=== PATIENT | male | born 1935 | race Two or more races ===

== ENCOUNTER 2016-12-30 19:41 | Emergency (ER) | payer MEDICARE, OTHER ==
[~2016-12-30] VITALS: Ht 172.7 cm; Wt 68.0 kg
[~2016-12-30 19:41] MED LIST: ACET-868 PO; AMIN30LI2 PO; BISA10SU61 RC; DOCU-25 PO; DONE5TAB3 PO; MAGN400O6 PO; MEMA5TAB PO; NA P133E RC; TAMS-12 PO; TRAM50TA2 PO
--- NOTE | 2016-12-30 19:45 | NUR ---
TO BED 3 BIB PARAMEDICS C/O ALTERED MENTAL STATUS. UPON ASSESSMENT OF PT, PT WAS CRYING, APPEARS DEPRESSED. PT STATES "I DON'T CARE, I JUST WANT TO , I DON'T HAVE A HOUSE, I DON'T HAVE ANYTHING, THERE'S NO POINT IN LIVING". PLACE PT ON CARDIAC MONITORING, CONTINUOUS POX. SL 18G TO L AC PT. CALL LIGHT WITHIN REACH. WILL CONTINUE TO MONITOR PT CLOSELY.
[2016-12-30] MEDS ORDERED: IV NS 0.9% 1,000 ML IV ONE ×2 (20:15→21:15)
[2016-12-30] MEDS ORDERED: ALBUTEROL FS 2.5 MG/3 ML VIAL.NEB ONE (20:24)
[2016-12-30] MEDS ORDERED: IPRATROPIUM NEB FS 0.5 MG/2.5 ML AMPUL.NEB ONE (20:24)
[2016-12-30] MEDS ORDERED: IPRATROPIUM NEB FS 0.5 MG/2.5 ML AMPUL.NEB NEB ONE (20:30)
[2016-12-30] MEDS ORDERED: ALBUTEROL FS 2.5 MG/3 ML VIAL.NEB NEB ONE (20:30)
[2016-12-30] MEDS ORDERED: ONDANSETRON HCL/PF 4 MG/2 ML VIAL IVP ONE (20:30)
[2016-12-30 20:37] LABS: BASOPHILS % (AUTO) 0.5 % (0.0-2.0); EOSINOPHILS # (AUTO) 0.2 /CMM (0.0-0.7); EOSINOPHILS % (AUTO) 2.1 % (0.0-6.0); HEMATOCRIT 40 % (39-51); HEMOGLOBIN 13.7 g/dL (13.5-17.5); LYMPHOCYTES # (AUTO) 1.4 /CMM (0.8-4.8); LYMPHOCYTES % (AUTO) 17.3 % (20.0-44.0); MEAN CORPUSCULAR HEMOGLOBIN 33 PG (26.0-33.0); MEAN CORPUSCULAR HGB CONC 34 g/dl (31.0-36.0); MEAN CORPUSCULAR VOLUME 96 fL (80-96); MONOCYTES # (AUTO) 0.7 /CMM (0.1-1.30); MONOCYTES % (AUTO) 8.6 % (2.0-12.0); NEUTROPHILS # (AUTO) 5.9 /CMM (1.8-8.9); NEUTROPHILS % (AUTO) 71.5 % (43.0-81.0); PLATELET COUNT (AUTO) 192 /CMM (150-450); RDW COEFFICIENT OF VARIATION 13.4 (11.5-15.0); RED BLOOD CELL COUNT(AUTO) 4.17 MIL/uL (4.5-6.0); WHITE BLOOD COUNT (AUTO) 8.2 K/uL (4.3-11.0)
[2016-12-30 20:51] LABS: CALCIUM, SERUM 8.9 mg/dL (8.5-10.1); CARBON DIOXIDE 30 mmol/L (21-32); CHLORIDE 108 mmol/L (98-107); CREATININE 1.5 mg/dL (0.6-1.3); GLUCOSE 113 mg/dL (74-106); SODIUM SERUM 144 mmol/L (136-145); UREA NITROGEN, BLOOD 24 mg/dL (7-18)
[2016-12-30] MEDS ORDERED: IV SET PRIMARY 1 EA INFUS.SET MC ONE (20:51)
[2016-12-30] MEDS ORDERED: ONDANSETRON HCL/PF 4 MG/2 ML VIAL ONE (20:51)
[2016-12-30] MEDS ORDERED: IV NS 0.9% 1,000 ML ONE (20:51)
[2016-12-30 20:57] LABS: LACTIC ACID 1.1 mmol/L (0.4-2.0)
[2016-12-30 20:58] LABS: TROPONIN I < 0.017 ng/mL (0.00-0.056)
[2016-12-30 21:03] LABS: ALANINE AMINOTRANSFERASE 50 U/L (12-78); ALBUMIN 3.4 g/dL (3.4-5.0); ALKALINE PHOSPHATASE 107 U/L (46-116); ASPARTATE AMINOTRANSFERASE 35 U/L (15-37); B-TYPE NATRIURETIC PEPTIDE 284 PG/ML (0-125); BILIRUBIN,DIRECT 0.1 mg/dL (0.0-0.2); BILIRUBIN,TOTAL 0.3 mg/dL (0.2-1.0); TOTAL PROTEIN, SERUM 7.2 g/dL (6.4-8.2)
--- NOTE | 2016-12-30 21:22 | NUR ---
CALLED [facility] FOR TRANSPORT BACK TO SNF, ETA 1 HOUR
[2016-12-30] MEDS ORDERED: FUROSEMIDE 40 MG/4 ML VIAL IV ONE (21:30)
--- NOTE | 2016-12-30 21:31 | NUR ---
REPORT CALLED TO [facility] NURSE LUKAS. AWAITING TRANSPORT.
[2016-12-30] MEDS ORDERED: FUROSEMIDE 40 MG/4 ML VIAL ONE (21:48)
--- NOTE | 2016-12-30 21:52 | NUR ---
TRANSPORT AT BEDSIDE REPORT GIVEN TO EMT TRANSPORT.
--- NOTE | 2016-12-30 21:52 | NUR ---
IV removed. Catheter intact and site benign. Pressure and 4x4 applied to site. No bleeding noted.
[2016-12-30 21:53] VITALS: BP 130/97
== END 2016-12-30 22:00 | disposition home or self-care (01) ==
LOC: ER 19:44
DX: J81.1 Chronic pulmonary edema (principal); R05 Cough; F32.9 Major depressive disorder, single episode, unspecified; I10 Essential (primary) hypertension; G30.9 Alzheimer's disease, unspecified; F02.80 Dementia in other diseases classified elsewhere, unspecified severity, without behavioral disturbance, psychotic disturbance, mood disturbance, and anxiety; K21.9 Gastro-esophageal reflux disease without esophagitis; E78.5 Hyperlipidemia, unspecified; N40.0 Benign prostatic hyperplasia without lower urinary tract symptoms
CPT/HCPCS: 36415; 71010-TC; 80048-TC; 80076-TC; 82962-TC; 83605-TC; 83880; 84484-TC; 85025-TC; 87040-TC; 87400; A4606; J1940; J2405; J7030; Z7610

== ENCOUNTER 2019-10-19 10:33 | Emergency (ER) | payer MEDICARE, OTHER ==
[~2019-10-19] VITALS: Ht 167.6 cm; Wt 66.7 kg
[~2019-10-19 10:33] MED LIST changes: +DOCU-141 PO; -DOCU-25 PO; -DONE5TAB3 PO; +DONE5TAB7 PO
--- NOTE | 2019-10-19 10:45 | NUR ---
BIBA Unit [facility] [place] [facility] "Abnormal labs K 5.8" Patient a/ox4, breathing even and unlabored, no sob noted, keep comfortable.
[2019-10-19 11:20] LABS: BASOPHILS # (AUTO) 0.1 /CMM (0.0-0.2); BASOPHILS % (AUTO) 0.8 % (0.0-2.0); EOSINOPHILS % (AUTO) 2.8 % (0.0-6.0); HEMATOCRIT 41 % (39-51); HEMOGLOBIN 13.5 g/dL (13.5-17.5); LYMPHOCYTES # (AUTO) 1.9 /CMM (0.8-4.8); MEAN CORPUSCULAR HGB CONC 33 g/dl (31.0-36.0); MEAN CORPUSCULAR VOLUME 100 fL (80-96); MONOCYTES # (AUTO) 0.6 /CMM (0.1-1.30); MONOCYTES % (AUTO) 8.9 % (2.0-12.0); NEUTROPHILS # (AUTO) 4.4 /CMM (1.8-8.9); NEUTROPHILS % (AUTO) 60.5 % (43.0-81.0); PLATELET COUNT (AUTO) 207 /CMM (150-450); RED BLOOD CELL COUNT(AUTO) 4.08 MIL/uL (4.5-6.0); WHITE BLOOD COUNT (AUTO) 7.2 K/uL (4.3-11.0)
[2019-10-19 11:27] LABS: CREATININE 1.3 mg/dL (0.6-1.3); POTASSIUM 3.8 mmol/L (3.5-5.1)
--- NOTE | 2019-10-19 12:30 | NUR ---
IV removed. Catheter intact and site benign. Pressure and 4x4 applied to site. No bleeding noted.
--- NOTE | 2019-10-19 12:56 | NUR ---
ARRANGED BLS TRANSPORT WITH [facility] ETA: 1315, SPOKE TO WILBERT.
--- NOTE | 2019-10-19 12:59 | NUR ---
Patient ambulatory with slow unsteady gait. Risk for fall. Fall precautions observed.
[2019-10-19] MEDS ORDERED: IV NS 0.9% 1,000 ML BAG IV ONE (13:00)
[2019-10-19] MEDS ORDERED: ONDANSETRON HCL/PF 4 MG/2 ML VIAL IV ONE (13:00)
--- NOTE | 2019-10-19 13:20 | NUR ---
report given to ALBINA RECINOS at [facility]
--- NOTE | 2019-10-19 13:25 | NUR ---
report given to utility bill complaints investigator. Patient a/ox1-2, confusion at times, breathing even and unlabored, no sob noted, needs attended and met. Patient discharged to SNF in stable condition. Written and verbal after care instructions given. Patient verbalizes understanding of instruction.
[2019-10-19 13:30] VITALS: BP 113/51
== END 2019-10-19 13:31 ==
LOC: ER 10:38
DX: I49.3 Ventricular premature depolarization (principal); E87.5 Hyperkalemia; G30.9 Alzheimer's disease, unspecified; F02.80 Dementia in other diseases classified elsewhere, unspecified severity, without behavioral disturbance, psychotic disturbance, mood disturbance, and anxiety; I10 Essential (primary) hypertension; K21.9 Gastro-esophageal reflux disease without esophagitis; M62.81 Muscle weakness (generalized); Z98.890 Other specified postprocedural states; Z79.899 Other long term (current) drug therapy
CPT/HCPCS: 36415; 80048-TC; 83735-TC; 85025-TC

== ENCOUNTER 2020-03-11 20:03 | Emergency (ER) | payer MEDICARE, OTHER ==
[~2020-03-11] VITALS: Ht 165.1 cm; Wt 77.1 kg
--- NOTE | 2020-03-11 20:17 | NUR ---
SANTIAGO AGUDELO FROM [facility] FOR C/O SCROTAL S[place]LL[place] REDNESS X 1 DAY; PT AWAKE, ALERT, -SOB, NAD NOTED, PENDING ER PROVIDER EVAL;
--- NOTE | 2020-03-11 20:55 | NUR ---
US TECH AT THE BED SIDE
[2020-03-11] MEDS ORDERED: LIDOCAINE 2% JEL UROJET 10 ML MM ONE (21:00)
[2020-03-11 21:10] LABS: APPEARANCE,URINE Clear (CLEAR); BILIRUBIN,URINE Negative (NEGATIVE); BLOOD, URINE Trace-lysed Ery/uL (NEGATIVE); COLOR,URINE Yellow (YELLOW); KETONES,URINE Negative (NEGATIVE); LEUKOCYTE ESTERASE ,URINE Negative (NEGATIVE); NITRITE, URINE Negative (NEGATIVE); PROTEIN,URINE 30 mg/dl (NEGATIVE); UGLUCOSE Negative (NEGATIVE)
[2020-03-11 21:38] LABS: BACTERIA,URINE None seen /HPF (None Seen); SQUAMOUS EPITHELIAL CELL,UR Few /HPF (None Seen); WBC,URINE 0-2 /HPF (0-3)
--- NOTE | 2020-03-11 22:14 | NUR ---
RES# [id number] ETA TO FOLLOW
--- NOTE | 2020-03-11 22:21 | NUR ---
[facility] ETA [id number]
[2020-03-11 22:30] VITALS: BP 132/75
--- NOTE | 2020-03-11 22:42 | NUR ---
REPORT GIVEN TO LUKAS NURSE AT [facility]
--- NOTE | 2020-03-11 23:00 | NUR ---
given report bls transport back to [facility]. assisted pt to transport jonathan. pt left in stable condition vss.
== END 2020-03-11 23:59 ==
LOC: ER 20:03
DX: N43.3 Hydrocele, unspecified (principal); N50.3 Cyst of epididymis; G30.9 Alzheimer's disease, unspecified; F02.80 Dementia in other diseases classified elsewhere, unspecified severity, without behavioral disturbance, psychotic disturbance, mood disturbance, and anxiety; I10 Essential (primary) hypertension; E78.5 Hyperlipidemia, unspecified; N40.0 Benign prostatic hyperplasia without lower urinary tract symptoms; Z98.890 Other specified postprocedural states; Z79.899 Other long term (current) drug therapy
CPT/HCPCS: 76870-TC; 81000-TC

== ENCOUNTER 2020-03-16 08:06 | Inpatient (IN) | payer MEDICARE, OTHER ==
[~2020-03-16] VITALS: Ht 157.5 cm; Wt 67.6 kg
--- NOTE | 2020-03-16 08:10 | NUR ---
BIBRA 878 FROM [facility] C/O TESTICULAR PAIN AND SWELLING, PT IS AAOX2, NOT IN RESPIRATORY DISTRESS, HOOKED TO VETERINARY TECHNOLOGIST, KEPT RESTED AND COMFORTABLE, WILL CONTINUE TO MONITOR.
--- NOTE | 2020-03-16 08:15 | NUR ---
IV LINE ESTABLISHED BLOOD DRAWN AND SENT TO LAB.
[2020-03-16 08:32] LABS: BASOPHILS % (AUTO) 0.7 % (0.0-2.0); EOSINOPHILS % (AUTO) 2.7 % (0.0-6.0); HEMATOCRIT 42 % (39-51); LYMPHOCYTES # (AUTO) 1.6 /CMM (0.8-4.8); LYMPHOCYTES % (AUTO) 27.5 % (20.0-44.0); MEAN CORPUSCULAR HGB CONC 33 g/dl (31.0-36.0); MEAN CORPUSCULAR VOLUME 101 fL (80-96); MONOCYTES # (AUTO) 0.5 /CMM (0.1-1.30); MONOCYTES % (AUTO) 7.6 % (2.0-12.0); NEUTROPHILS # (AUTO) 3.7 /CMM (1.8-8.9); NEUTROPHILS % (AUTO) 61.5 % (43.0-81.0); PLATELET COUNT (AUTO) 198 /CMM (150-450); RED BLOOD CELL COUNT(AUTO) 4.19 MIL/uL (4.5-6.0)
--- NOTE | 2020-03-16 08:38 | NUR ---
URINE SPECIMEN COLLECTED AND SENT TO LAB.
[2020-03-16 08:40] LABS: CALCIUM, SERUM 8.7 mg/dL (8.5-10.1); CREATININE 1.1 mg/dL (0.6-1.3); POTASSIUM 3.8 mmol/L (3.5-5.1)
[2020-03-16 08:45] LABS: APPEARANCE,URINE Clear (CLEAR); BILIRUBIN,URINE Negative (NEGATIVE); BLOOD, URINE Small Ery/uL (NEGATIVE); COLOR,URINE Yellow (YELLOW); KETONES,URINE Negative (NEGATIVE); LEUKOCYTE ESTERASE ,URINE Negative (NEGATIVE); NITRITE, URINE Negative (NEGATIVE); PROTEIN,URINE 100 mg/dl (NEGATIVE); UGLUCOSE Negative (NEGATIVE); UROBILINOGEN,URINE 0.2 EU/dL (0.2)
[2020-03-16 08:56] LABS: ALBUMIN 3.5 g/dL (3.4-5.0); BILIRUBIN,DIRECT 0.1 mg/dL (0.0-0.2); BILIRUBIN,TOTAL 0.5 mg/dL (0.2-1.0); TOTAL PROTEIN, SERUM 7.4 g/dL (6.4-8.2)
[2020-03-16 09:01] LABS: BACTERIA,URINE Few /HPF (None Seen); SQUAMOUS EPITHELIAL CELL,UR Few /HPF (None Seen); WBC,URINE 0-2 /HPF (0-3)
--- NOTE | 2020-03-16 09:09 | NUR ---
PT IS BACK FROM THE CT SCAN.
--- NOTE | 2020-03-16 10:39 | NUR ---
ROOM GIVEN 326-1 MS
[2020-03-16] MEDS ORDERED: OMEG1CAP PO (10:41)
[2020-03-16] MEDS ORDERED: ACET-2605 PO (10:41)
[2020-03-16] MEDS ORDERED: QUET25TA PO ×2 (10:41)
[2020-03-16] MEDS ORDERED: FURO-145 PO (10:41)
[2020-03-16] MEDS ORDERED: ZOLP5TAB2 PO (10:41)
[2020-03-16] MEDS ORDERED: GINK120C PO (10:41)
[2020-03-16] MEDS ORDERED: LORA-258 PO (10:41)
[2020-03-16] MEDS ORDERED: ACET-868 PO (10:41)
[2020-03-16] MEDS ORDERED: CRAN425C6 PO (10:41)
[2020-03-16] MEDS ORDERED: ONDANSETRON HCL/PF 4 MG/2 ML VIAL IVP PRN (11:00)
[2020-03-16] MEDS ORDERED: HYDROCODONE/APAP 5/325MG 1 EACH TABLET PO PRN (11:00)
[2020-03-16] MEDS ORDERED: Z GUARD REMEDY 2 OZ OINT TP PRN (11:00)
[2020-03-16] MEDS ORDERED: ZOLPIDEM TARTRATE 5 MG TABLET PO PRN (11:00)
[2020-03-16] MEDS ORDERED: MAGNESIUM HYDROXIDE 30 ML UDC PO PRN (11:00)
[2020-03-16] MEDS ORDERED: MAG HYDROX/AL HYDROX/SIMETH 30 ML UDC PO PRN (11:00)
[2020-03-16] MEDS ORDERED: ACETAMINOPHEN 325 MG TABLET PO PRN (11:00)
[2020-03-16] MEDS ORDERED: MORPHINE SULFATE INJ 2 MG/ML DISP.SYRIN IV PRN (11:00)
--- NOTE | 2020-03-16 11:10 | NUR ---
REPORT GIVEN TO GRISEL MARTINEZ FOR AGUSTÍN.
[2020-03-16 11:45] VITALS: BP 145/75
--- NOTE | 2020-03-16 11:45 | NUR ---
RN OPENING NOTE Received patient awake in bed transferred to room 326-1 no signs of distress. On RA tolerating well. AO x3. He said he doesnt know why he is here. Informed he is being monitored for his testicular pain and diff urinating. Vital signs as follows BP 141/62 HR 71 RR 18 temp 96.8 o2 sat 97%. Urinal provided. on a diaper. Able to ambulate with assist.[place] Citizen speaking MUSIC PROFESSIONALS at bedside. No skin issues. Has LAC #18 flushed well. Safety measures reinforced. Call light within reach. Side rails up x2. bed lcoked and on lowest position. Will cont to monitor.
--- NOTE | 2020-03-16 14:00 | NUR ---
FOLLOWED UP WITH DR HERNANDEZ FOR MED RECON.
[2020-03-16 16:00] VITALS: BP 134/83
--- NOTE | 2020-03-16 19:10 | NUR ---
RN CLOSING NOTE Patient in bed calm and relaxed no signs of distress. Vital signs maintained within normal limits. Kept patient clean and dry. Safety measures reinforced. Bed locked and on lowest position. Side rails up x2. Will endorse to carpet binder nurse for kyle.
[2020-03-16 20:00] VITALS: BP 132/80
--- NOTE | 2020-03-16 20:00 | NUR ---
RN NOTES RECEIVED PATIENT SITTING ON THE EDGE OF BED, ALERT AND ORIENTED X2, WITH CONFUSION, STABLE ON ROOM AIR, UNSTEADY GAIT, LOOKING FOR SHOES, TOLD PATIENT HAS NO BELONGINGS ON ADMISSION CONFIRMED BY INVENTORY FORM. WILL CONTINUE TO MONITOR.
[2020-03-16 20:02] VITALS: BP 132/80
[2020-03-17] MEDS: ENOXAPARIN SODIUM 40 MG/0.4 ML DISP.SYRIN SQ SCH (03:28)
[2020-03-17 06:48] LABS: BASOPHILS # (AUTO) 0.1 /CMM (0.0-0.2); BASOPHILS % (AUTO) 0.9 % (0.0-2.0); EOSINOPHILS % (AUTO) 2.3 % (0.0-6.0); HEMATOCRIT 42 % (39-51); HEMOGLOBIN 13.5 g/dL (13.5-17.5); LYMPHOCYTES # (AUTO) 1.6 /CMM (0.8-4.8); LYMPHOCYTES % (AUTO) 26.2 % (20.0-44.0); MEAN CORPUSCULAR HGB CONC 32 g/dl (31.0-36.0); MEAN CORPUSCULAR VOLUME 103 fL (80-96); MONOCYTES # (AUTO) 0.7 /CMM (0.1-1.30); MONOCYTES % (AUTO) 10.8 % (2.0-12.0); NEUTROPHILS # (AUTO) 3.8 /CMM (1.8-8.9); NEUTROPHILS % (AUTO) 59.8 % (43.0-81.0); PLATELET COUNT (AUTO) 196 /CMM (150-450); RED BLOOD CELL COUNT(AUTO) 4.06 MIL/uL (4.5-6.0); WHITE BLOOD COUNT (AUTO) 6.3 K/uL (4.3-11.0)
--- NOTE | 2020-03-17 06:52 | NUR ---
RN NOTES PATIENT ALERT AND ORIENTED X2, ROOM AIR, NO COMPLAIN OF PAIN, FORGETFUL, REDIRECTABLE, UNSTEADY GAIT, AMBULATES WITH CONTACT GUARD ASSIST, URINARY FREQUENCY, VOIDED X5 IN TOILET. PER CT ENLARGED PROSTATE WITH NON OBSTRUCTING CALCULI.
[2020-03-17 06:56] LABS: THYROID STIMULATING HORMONE 2.544 uIU/mL (0.358-3.74)
[2020-03-17 06:57] LABS: CALCIUM, SERUM 8.8 mg/dL (8.5-10.1); CREATININE 0.8 mg/dL (0.6-1.3); MAGNESIUM 2.2 mg/dL (1.8-2.4); PHOSPHORUS 2.7 mg/dL (2.5-4.9); POTASSIUM 3.9 mmol/L (3.5-5.1)
[2020-03-17 07:12] LABS: FREE PSA 2.61 ng/mL (0.00-45); PROSTATE SPECIFIC ANTIGEN SCR 14.73 ng/mL (0.00-4.00)
--- NOTE | 2020-03-17 07:30 | NUR ---
MS/RN Opening note Received patient alert, oriented x 2, forgetful, able to responds all stimuli. Pt denies abdominal pain or discomfort. Skin is warm to touch, keep clean/dry, no abdominal distension observed this morning. Respiratory even and unlabored in room air, no distress observed. Keep bed in lock with elevated HOB for secure airway. Call light within reach, will continue to monitor
[2020-03-17 08:00] VITALS: BP 144/66
[2020-03-17] MEDS ORDERED: IV NS 0.9% 1,000 ML IV PRN (09:16)
[2020-03-17 16:00] VITALS: BP 139/85
[2020-03-17] MEDS: DOCUSATE SODIUM 100 MG CAPSULE PO SCH (17:11)
--- NOTE | 2020-03-17 18:33 | NUR ---
MS//RN Closing note Patient in bed comfortably, does no appears pain or any discomfort. Patient pulled out new IV site. Skin is warm to touch and clean/dry, patient denies abdominal pain or distension. Respiratory even and unlabored in room air. Keep bed in locked with elevated HOB for secure airway. Call light within reach, will endorse to manufacturing shift supervisor
--- NOTE | 2020-03-17 19:15 | NUR ---
MS OPENING NOTE PM BEDSIDE REPORT RECIEVED FROM MARIA ALEJANDRA RECINOS. PT IN BED IN NO APPARENT DISTRESS. WITH NO IV ACCESS. PT DENIES PAIN. RESP EVEN AND UNLABORED ON ROOM AIR. BED DOWN AND LOCKED SRX2 BED ALARM ACTIVE. WILL CONT TO MONITOR.
[2020-03-17 20:00] VITALS: BP 145/83
--- NOTE | 2020-03-17 20:14 | NUR ---
NEW IV INSERTED TO LEFT FA #20 ; ARM SLEEVE PLACED TO LEFT FOREARM TO PROTECT SITE. IVF RESTARTED.
[2020-03-17] MEDS: MEMANTINE HCL 5 MG TABLET PO SCH (21:38)
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
[2020-03-18] MEDS: ENOXAPARIN SODIUM 40 MG/0.4 ML DISP.SYRIN SQ SCH (03:15)
--- NOTE | 2020-03-18 07:37 | NUR ---
MS RN OPENING NOTES RECEIVED PATIENT IN BED, AWAKE, A/O X1. PATIENT IS BREATHING ON ROOM AIR; BREATHING IS EVEN AND UNLABORED; NO SOB PRESENT AT THIS TIME. NO COMPLAINS OF PAIN AT THIS MOMENT. IV LINE IS MISSING. PER DIRECTOR HOSPICE OPERATIONS NURSE PATIENT PULLED OUT HIS IV THREE TIMES AND REFUSES ANY IV TO BE PRESENT STATING HE FEELS OK. SAFETY PRECAUTIONS IN PLACE; BED IN LOW POSITION AND LOCKED, RAILS UP X2, CALL LIGHT WITHIN REACH, BED ALARM ON. WILL CONTINUE TO MONITOR PATIENT.
[2020-03-18 08:00] VITALS: BP 130/70
[2020-03-18] MEDS: MEMANTINE HCL 5 MG TABLET PO SCH ×2 (08:05→20:58)
[2020-03-18 08:18] LABS: BASOPHILS % (AUTO) 0.5 % (0.0-2.0); EOSINOPHILS % (AUTO) 1.9 % (0.0-6.0); HEMATOCRIT 40 % (39-51); LYMPHOCYTES # (AUTO) 1.9 /CMM (0.8-4.8); LYMPHOCYTES % (AUTO) 27.9 % (20.0-44.0); MEAN CORPUSCULAR HGB CONC 33 g/dl (31.0-36.0); MEAN CORPUSCULAR VOLUME 100 fL (80-96); MONOCYTES # (AUTO) 0.7 /CMM (0.1-1.30); MONOCYTES % (AUTO) 10.3 % (2.0-12.0); NEUTROPHILS % (AUTO) 59.4 % (43.0-81.0); PLATELET COUNT (AUTO) 189 /CMM (150-450); RED BLOOD CELL COUNT(AUTO) 3.96 MIL/uL (4.5-6.0); WHITE BLOOD COUNT (AUTO) 6.7 K/uL (4.3-11.0)
[2020-03-18 08:51] LABS: ALBUMIN 3.3 g/dL (3.4-5.0); BILIRUBIN,TOTAL 0.6 mg/dL (0.2-1.0); CALCIUM, SERUM 8.6 mg/dL (8.5-10.1); CREATININE 0.9 mg/dL (0.6-1.3); MAGNESIUM 2.1 mg/dL (1.8-2.4); PHOSPHORUS 2.8 mg/dL (2.5-4.9); POTASSIUM 3.7 mmol/L (3.5-5.1)
[2020-03-18 16:00] VITALS: BP 117/72
[2020-03-18] MEDS: DOCUSATE SODIUM 100 MG CAPSULE PO SCH (17:40)
--- NOTE | 2020-03-18 18:44 | NUR ---
MS RN CLOSING NOTES PATIENT REMAINS IN BED, ASLEEP AT THIS TIME. PATIENT IS BREATHING ON ROOM AIR; BREATHING IS EVEN AND UNLABORED; NO SOB PRESENT AT THIS TIME. NO COMPLAINS OF PAIN DURING THE SHIFT. IV LINE IS MISSING; PATIENT REFUSES ANY IV TO BE PRESENT. ALL NEEDS ATTENDED THROUGHOUT THE DAY. SAFETY PRECAUTIONS REMAIN IN PLACE; BED IN LOW POSITION AND LOCKED, RAILS UP X2, CALL LIGHT WITHIN REACH, BED ALARM ON. WILL ENDORSE TO FINISH MACHINE TENDER NURSE.
--- NOTE | 2020-03-18 19:00 | NUR ---
RN MS OPENING NOTES RECEIVED PATIENT IN BED AWAKE ALERT AND ORIENTED X1-2 NOTED WITH PERIODS OF FORGETFULNESS AND CONFUSION HOWEVER REDIRECTABLE, RESPIRATIONS EVEN AND UNLABORED WITH EQUAL RISE AND FALL OF CHEST, BLAKE ANY PAIN AT THIS TIME, NO IV ACCESS AT THIS TIMEE PER REPORT PT REFUSED MD AWARE, WILL ATTEMPT TO REINSERT. ASSISTED PT TO THE BATHROOM AND ALSO PROVIDED DINNER AND SNACKS. ORIENTED TO STAFF AND CALL LIGHT AND KEPT WITHIN REACH, SAFETY PRECAUTIONS RENDERED, LOW BED AND LOCKED, BED ALARM IN PLACE, FLUIDS OFFERED, ALL NEEDS ATTENDED AT THIS TIME, WILL CONTINUE TO MONITOR AND ATTEND TO NEEDS.
[2020-03-18 20:00] VITALS: BP 139/73
--- NOTE | 2020-03-18 22:20 | NUR ---
rn ms notes lab called covid results negative. isolation discontinued. pending discharge in am.
[2020-03-19] MEDS: ENOXAPARIN SODIUM 40 MG/0.4 ML DISP.SYRIN SQ SCH (04:21)
--- NOTE | 2020-03-19 04:30 | NUR ---
rn ms notes patient agreed to have ivf infusing at this time.
--- NOTE | 2020-03-19 06:26 | NUR ---
RN MS CLOSING NOTES PATIENT IN BED AWAKE ALERT AND ORIENTED X1-2 NOTED WITH PERIODS OF FORGETFULNESS AND CONFUSION HOWEVER REDIRECTABLE, RESPIRATIONS EVEN AND UNLABORED WITH EQUAL RISE AND FALL OF CHEST, BLAKE ANY PAIN AT THIS TIME, IV ACCESS TO RIGHT FA #22 INTACT AND PATENT IVF RUNNING ORDERED, . ASSISTED PT TO THE BATHROOM THROUGHOUT SHIFT,ATE 100% DINNER AND SNACKS. CALL LIGHT KEPT WITHIN REACH, SAFETY PRECAUTIONS RENDERED, LOW BED AND LOCKED, BED ALARM IN PLACE, FLUIDS OFFERED, ALL NEEDS ATTENDED AT THIS TIME, WILL CONTINUE TO MONITOR AND ATTEND TO NEEDS AND ENDORSE TO NEXT SHIFT.
--- NOTE | 2020-03-19 07:30 | NUR ---
M/S RN NOTES PATIENT RESTING IN BED, NO ACUTE DISTRESS NOTED AT THIS TIME. SKIN WARM TO TOUCH, IV ACCESS SITE INTACT AND PATENT. PATIENT'S NEEDS ATTENDED, BED ON LOWEST LOCKED POSITION ,CALL LIGHT WITHIN REACH. WILL CONTINUE TO MONITOR.
[2020-03-19] MEDS: MEMANTINE HCL 5 MG TABLET PO SCH (09:24)
--- NOTE | 2020-03-19 13:32 | NUR ---
M/S RN NOTES PATIENT DISCHARGED IN STABLE CONDITION, NO RESPIRATORY DISTRESS, NO C/O PAIN AT THIS TIME. PATIENT'S SKIN WARM TO TOUCH, SKIN ASSESSED, NO SKIN BREAKDOWN. IV REMOVED AND APPLIED PRESSURE DRESSING. PATIENT GIVEN DISCHARGE INSTRUCTIONS, VERBALIZED UNDERSTANDING. PATIENT HAD NO BELONGINGS. GAVE REPORT TO GRISEL DODGE FROM [facility]. PATIENT LEFT VIA GURNEY WITH PARAMEDICS.
== END 2020-03-19 13:25 | DRG 726 ==
LOC: ER 08:10 → MED 10:41
PROVIDERS: ADMIT Student in an Organized Health Care Education/Training Program; ATTEND Nurse Practitioner Acute Care
DX: N40.0 Benign prostatic hyperplasia without lower urinary tract symptoms (principal); I10 Essential (primary) hypertension; N32.9 Bladder disorder, unspecified; N50.89 Other specified disorders of the male genital organs; F02.80 Dementia in other diseases classified elsewhere, unspecified severity, without behavioral disturbance, psychotic disturbance, mood disturbance, and anxiety; G30.9 Alzheimer's disease, unspecified; N20.0 Calculus of kidney; Z86.59 Personal history of other mental and behavioral disorders; Z86.61 Personal history of infections of the central nervous system; K21.9 Gastro-esophageal reflux disease without esophagitis; Z79.899 Other long term (current) drug therapy; I25.10 Atherosclerotic heart disease of native coronary artery without angina pectoris; E78.5 Hyperlipidemia, unspecified; F32.9 Major depressive disorder, single episode, unspecified; R79.89 Other specified abnormal findings of blood chemistry
CPT/HCPCS: 36415; 71045-TC; 80048-TC; 80053-TC; 80076-TC; 81000-TC; 83605-TC; 83690-TC; 83735-TC; 84100-TC; 84153-TC; 84154-TC; 84443-TC; 85025-TC; 87040-TC; 87081-TC; 87086-TC; 93307-TC; G0378; J1650; J7030; U0003-CS

== ENCOUNTER 2021-08-23 08:54 | Inpatient (IN) | payer MEDICARE, OTHER ==
[~2021-08-23] VITALS: Ht 177.8 cm; Wt 72.6 kg
[~2021-08-23 08:54] MED LIST changes: -AMIN30LI2 PO; +CRAN425C6 PO; -DONE5TAB7 PO; +FURO-145 PO; +GINK120C PO; +LORA-258 PO; +OMEG1CAP PO; +QUET25TA PO; -TRAM50TA2 PO; +ZOLP5TAB2 PO
[2021-08-23] MEDS ORDERED: HYDR-3972 PO (09:16)
[2021-08-23 09:45] LABS: BASOPHILS # (AUTO) 0.1 K/uL (0.0-0.2); BASOPHILS % (AUTO) 0.8 % (0.0-2.0); EOSINOPHILS % (AUTO) 3.9 % (0.0-6.0); HEMATOCRIT 37 % (39-51); HEMOGLOBIN 12.3 g/dL (13.5-17.5); LYMPHOCYTES # (AUTO) 1.5 K/uL (0.8-4.8); LYMPHOCYTES % (AUTO) 24.1 % (20.0-44.0); MEAN CORPUSCULAR HGB CONC 34 g/dl (31.0-36.0); MEAN CORPUSCULAR VOLUME 101 fL (80-96); MONOCYTES # (AUTO) 0.7 K/uL (0.1-1.30); MONOCYTES % (AUTO) 10.6 % (2.0-12.0); NEUTROPHILS # (AUTO) 3.9 K/uL (1.8-8.9); NEUTROPHILS % (AUTO) 60.6 % (43.0-81.0); PLATELET COUNT (AUTO) 199 K/uL (150-450); RED BLOOD CELL COUNT(AUTO) 3.65 MIL/uL (4.5-6.0); WHITE BLOOD COUNT (AUTO) 6.4 K/uL (4.3-11.0)
[2021-08-23 10:01] LABS: ALANINE AMINOTRANSFERASE 27 U/L (12-78); ALBUMIN 3.2 g/dL (3.4-5.0); ALKALINE PHOSPHATASE 93 U/L (46-116); ASPARTATE AMINOTRANSFERASE 25 U/L (15-37); BILIRUBIN,DIRECT 0.1 mg/dL (0.0-0.2); BILIRUBIN,TOTAL 0.6 mg/dL (0.2-1.0); CALCIUM, SERUM 8.6 mg/dL (8.5-10.1); CARBON DIOXIDE 26 mmol/L (21-32); CHLORIDE 107 mmol/L (98-107); CREATININE 1.1 mg/dL (0.6-1.3); GLUCOSE 103 mg/dL (74-106); POTASSIUM 3.5 mmol/L (3.5-5.1); SODIUM SERUM 142 mmol/L (136-145); UREA NITROGEN, BLOOD 25 mg/dL (7-18)
[2021-08-23] MEDS ORDERED: IV NS 0.9% 500 ML BAG IV ONE (10:30)
[2021-08-23 10:39] LABS: THYROID STIMULATING HORMONE 0.673 uIU/mL (0.358-3.74)
[2021-08-23 10:48] LABS: BILIRUBIN,URINE NEGATIVE (NEGATIVE); COLOR,URINE YELLOW (YELLOW); LEUKOCYTE ESTERASE ,URINE NEGATIVE (NEGATIVE); NITRITE, URINE NEGATIVE (NEGATIVE); PH,URINE 6.5 (5.0-8.0); PROTEIN,URINE 30 mg/dl (NEGATIVE); UGLUCOSE NEGATIVE (NEGATIVE); UROBILINOGEN,URINE 0.2 EU/dL (0.2)
[2021-08-23 13:04] LABS: BACTERIA,URINE Rare /HPF (None Seen); SQUAMOUS EPITHELIAL CELL,UR Rare /HPF (None Seen); WBC,URINE 0-3 /HPF (0-3)
[2021-08-23] MEDS ORDERED: HYDROCODONE/APAP 5/325MG TABLET PO PRN (17:30)
[2021-08-23] MEDS ORDERED: NA PHOS,M-B/NA PHOS,DI-BA 1 EA ENEMA RC PRN (17:30)
[2021-08-23] MEDS ORDERED: MAGNESIUM HYDROXIDE 30 ML UDC PO PRN ×2 (17:30→20:30)
[2021-08-23] MEDS ORDERED: ACETAMINOPHEN 325 MG TABLET PO PRN ×2 (17:30→20:30)
[2021-08-23] MEDS ORDERED: BISACODYL SUPP (10 MG) 10 MG/SUPP.RECT SUPP.RECT RC PRN (17:30)
[2021-08-23] MEDS ORDERED: ENOXAPARIN SODIUM 40 MG/0.4 ML DISP.SYRIN SQ SCH (20:30)
[2021-08-23] MEDS ORDERED: ONDANSETRON HCL/PF 4 MG/2 ML VIAL IVP PRN (20:30)
[2021-08-23] MEDS ORDERED: Z GUARD REMEDY 2 OZ OINT TP PRN (20:30)
[2021-08-23] MEDS ORDERED: IV LR 1000 ML 1,000 ML IV PRN (20:30)
[2021-08-23] MEDS ORDERED: MEMANTINE HCL 5 MG TABLET PO SCH (21:00)
[2021-08-23] MEDS ORDERED: ENOXAPARIN SODIUM 40 MG/0.4 ML DISP.SYRIN SQ ONE (21:01)
[2021-08-23] MEDS ORDERED: DOCUSATE SODIUM 100 MG CAPSULE PO ONE (21:01)
[2021-08-23] MEDS ORDERED: ONDANSETRON HCL/PF 4 MG/2 ML VIAL ONE (21:01)
[2021-08-23] MEDS ORDERED: MAGNESIUM HYDROXIDE 30 ML UDC ONE (21:01)
[2021-08-23] MEDS ORDERED: MEMANTINE HCL 5 MG TABLET ONE (21:01)
[2021-08-24 03:23] VITALS: BP 130/78
[2021-08-24] MEDS ORDERED: DOCUSATE SODIUM 100 MG CAPSULE PO SCH (09:00)
[2021-08-24] MEDS ORDERED: QUETIAPINE FUMARATE 25 MG TABLET PO SCH (09:00)
== END 2021-08-24 03:14 | DRG 640 ==
LOC: ER 08:59 → TRANSITION 17:23
PROVIDERS: ADMIT Nurse Practitioner Acute Care; ATTEND Nurse Practitioner Acute Care
DX: R62.7 Adult failure to thrive (principal); N17.0 Acute kidney failure with tubular necrosis; F02.81 Dementia in other diseases classified elsewhere, unspecified severity, with behavioral disturbance; B69.9 Cysticercosis, unspecified; I25.10 Atherosclerotic heart disease of native coronary artery without angina pectoris; K21.9 Gastro-esophageal reflux disease without esophagitis; G30.9 Alzheimer's disease, unspecified; I10 Essential (primary) hypertension; Z20.822 Contact with and (suspected) exposure to COVID-19; N40.0 Benign prostatic hyperplasia without lower urinary tract symptoms; Z79.899 Other long term (current) drug therapy; E78.5 Hyperlipidemia, unspecified; Z87.448 Personal history of other diseases of urinary system; S31.139S Puncture wound of abdominal wall without foreign body, unspecified quadrant without penetration into peritoneal cavity, sequela; W34.00XS Accidental discharge from unspecified firearms or gun, sequela; Z98.890 Other specified postprocedural states
CPT/HCPCS: 36415; 71045-TC; 80048-TC; 80076-TC; 81001; 82140-TC; 83605-TC; 84443-TC; 84484-TC; 85025-TC; 85730-TC; 87040-TC; 87081-TC; 87086-TC; G0378; J1650; J2405; J7040; J7120; U0003

== ENCOUNTER 2022-04-07 13:14 | Inpatient (IN) | payer MEDICARE, OTHER ==
[~2022-04-07] VITALS: Ht 165.1 cm; Wt 67.1 kg
[~2022-04-07 13:14] MED LIST changes: +HYDR-3972 PO; -LORA-258 PO; -TAMS-12 PO; -ZOLP5TAB2 PO
--- NOTE | 2022-04-07 13:19 | NUR ---
[facility]ANTIAGO [facility] [address] [facility] S[facility]CE [facility] MORNING. PER REPORT PATIENT WAS INCONTINENT WITH BLADDER TODAY, GOOD WITH KYRGYZ AND EQUATORIAL GUINEAN BUT WAS JUST MAINLY SPEAKING EQUATORIAL GUINEAN TODAY. TO ER BED 11, HOOKED TO MONITOR, CHANGED TO HOSP GOWN, WARM BLANKET PROVIDED. PATIENT AAO x 1. BREATHING EVEN AND UNLABORED. AWAITING MD SCHMIDT
[2022-04-07] MEDS ORDERED: ALBU8.5H8 IH (13:29)
--- NOTE | 2022-04-07 14:09 | NUR ---
DR BETTS AT BEDSIDE
[2022-04-07 14:48] LABS: BASOPHILS % (AUTO) 0.4 % (0.0-2.0); EOSINOPHILS % (AUTO) 2.1 % (0.0-6.0); HEMATOCRIT 41 % (39-51); HEMOGLOBIN 13.5 g/dL (13.5-17.5); LYMPHOCYTES # (AUTO) 1.5 K/uL (0.8-4.8); MEAN CORPUSCULAR HGB CONC 33 g/dl (31.0-36.0); MEAN CORPUSCULAR VOLUME 100 fL (80-96); MONOCYTES # (AUTO) 0.7 K/uL (0.1-1.30); MONOCYTES % (AUTO) 12.1 % (2.0-12.0); NEUTROPHILS # (AUTO) 3.7 K/uL (1.8-8.9); NEUTROPHILS % (AUTO) 60.4 % (43.0-81.0); PLATELET COUNT (AUTO) 234 K/uL (150-450); RED BLOOD CELL COUNT(AUTO) 4.07 MIL/uL (4.5-6.0); WHITE BLOOD COUNT (AUTO) 6.2 K/uL (4.3-11.0)
[2022-04-07 15:21] LABS: ALANINE AMINOTRANSFERASE 31 U/L (12-78); ALBUMIN 3.8 g/dL (3.4-5.0); ALKALINE PHOSPHATASE 104 U/L (46-116); ASPARTATE AMINOTRANSFERASE 20 U/L (15-37); BILIRUBIN,DIRECT 0.1 mg/dL (0.0-0.2); BILIRUBIN,TOTAL 0.4 mg/dL (0.2-1.0); CREATININE 1.1 mg/dL (0.6-1.3); GLUCOSE 118 mg/dL (74-106); UREA NITROGEN, BLOOD 22 mg/dL (7-18)
[2022-04-07 16:53] LABS: CARBON DIOXIDE 24 mmol/L (21-32); CHLORIDE 104 mmol/L (98-107); POTASSIUM 3.5 mmol/L (3.5-5.1); SODIUM SERUM 139 mmol/L (136-145)
[2022-04-07 17:20] LABS: ACETAMINOPHEN < 10 ug/ml (10-30); ALCOHOL, BLOOD < 3 mg/dL (0-0)
--- NOTE | 2022-04-07 18:03 | NUR ---
CALLED [facility] TO EVALUATE PT
--- NOTE | 2022-04-07 19:19 | NUR ---
RAPID COVID SWAB DONE AND SENT TO LAB
--- NOTE | 2022-04-07 20:17 | NUR ---
URINE COLLECTED AND SENT TO LAB
[2022-04-07 20:47] LABS: BILIRUBIN,URINE NEGATIVE (NEGATIVE); COLOR,URINE YELLOW (YELLOW); LEUKOCYTE ESTERASE ,URINE NEGATIVE (NEGATIVE); NITRITE, URINE NEGATIVE (NEGATIVE); PH,URINE 5.5 (5.0-8.0); PROTEIN,URINE 100 mg/dl (NEGATIVE); UGLUCOSE 250 MG/DL mg/dL (NEGATIVE); UROBILINOGEN,URINE 0.2 EU/dL (0.2)
[2022-04-07 21:47] LABS: RBC,URINE 21-50 /HPF (0-2)
[2022-04-07 21:48] LABS: BACTERIA,URINE 1+ /HPF (None Seen); MUCUS,URINE Few /LPF (None Seen); SQUAMOUS EPITHELIAL CELL,UR 0-2 /HPF (None Seen)
--- NOTE | 2022-04-07 22:05 | NUR ---
REPORT GIVEN TO [employer] RN FOR AGUSTÍN
--- NOTE | 2022-04-07 22:57 | NUR ---
PT TRANSFERRING TO GPS VIA HOSPITAL PROTOCOL. VSS. ALL BELONGINGS WITH PT
[2022-04-07] MEDS ORDERED: MAGNESIUM HYDROXIDE 30 ML UDC PO PRN (23:30)
[2022-04-07] MEDS ORDERED: MAG HYDROX/AL HYDROX/SIMETH 30 ML UDC PO PRN (23:30)
[2022-04-07] MEDS ORDERED: ACETAMINOPHEN 325 MG TABLET PO PRN (23:30)
[2022-04-07] MEDS ORDERED: BLOOD SUGAR DIAGNOSTIC 1 EACH STRIP IN ONE (23:30)
[2022-04-08] MEDS ORDERED: ALBUTEROL SULFATE 8 GM HFA.AER.AD IH PRN
[2022-04-08] MEDS ORDERED: BISACODYL SUPP (10 MG) 10 MG/SUPP.RECT SUPP.RECT RC PRN
--- NOTE | 2022-04-08 00:29 | NUR ---
GPS RN ADMITTING NOTES: PATIENT WAS BROUGHT IN BY AN ER ESCORT ON A STRETCHER AT 2305. PATIENT ORIGINALLY CAME FROM [facility]. PATIENT IS ON A 5150 HOLD FOR DTO/GD. HOLD WAS PLACED ON 04/07/2022 @ 2104. PER HOLD, PATIENT WAS AGITATED, AGGRESSIVE TOWARDS STAFF, CONFUSED AND NOT COMPLYING WITH DIRECTIVES. IN ER PATIENT HAD TO BE RESTRAINED SEVERAL TIMES TO BE REDIRECTED. UPON FACE TO FACE EVALUATION, PATIENT IS A/O X1, LABILE, DISORIENTED, DISORGANIZED, CONFUSED, COOPERATIVE AND UNCOOPERATIVE, ANXIOUS, FORGETFUL AND NEEDS FREQUENT REDIRECTION. PATIENT IS DISPLAYING NO S/S OF DISTRESS. PATIENT RESPIRATION IS EVEN AND UNLABORED WITH EQUAL RISE AND FALL OF THE CHEST, ON ROOM AIR. QD144AZ/DL. PATIENT REFUSED TO SIGN ALL ADMISSION PAPER WORK. PATIENT IS UNDER THE PSYCHIATRIC CARE OF DR. PEACE AND THE MEDICAL CARE OF CLEO. PATIENT BELONGINGS WERE INVENTORIED AND CHECKED FOR CONTRABAND. PATIENT ADVANCED DIRECTIVES PREFERENCE, IMMUNIZATIONS QUESTIONER, NECESSARY PAPERWORK COMPLETED. PATIENT IS FULLY VACCINATED FOR COVID 19, PNEUMONIA AND INFLUENZA PER DOCUMENT. SKIN ASSESSMENT COMPLETED. PATIENT EDUCATED ON THE USE OF THE CALL LIGHT. PATIENT BED IS LOCKED AND IN LOW POSITION, SIDE RAILS UP X2 FOR SAFETY. ALL PATIENT CARE NEEDS HAVE BEEN MET ANTICIPATED. WILL CONTINUE TO MONITOR PATIENT Q15 MIN FOR SAFETY, MOOD AND BEHAVIOR.
[2022-04-08] MEDS ORDERED: ALBUTEROL FS 2.5 MG/3 ML VIAL.NEB NEB PRN (00:30)
[2022-04-08 00:54] VITALS: BP 127/79
[2022-04-08 00:55] VITALS: BP 159/96
[2022-04-08 07:18] LABS: CHOLESTEROL 178 mg/dL (<200); HDL CHOLESTEROL 73 mg/dL (40-60); LDL 91 mg/dL (0-99); TRIGLYCERIDES 55 mg/dL (30-150)
[2022-04-08 07:37] LABS: ALBUMIN 3.8 g/dL (3.4-5.0); BILIRUBIN,TOTAL 0.6 mg/dL (0.2-1.0); POTASSIUM 3.4 mmol/L (3.5-5.1); TOTAL PROTEIN, SERUM 7.7 g/dL (6.4-8.2)
[2022-04-08 08:00] VITALS: BP 142/80
[2022-04-08] MEDS: MEMANTINE HCL 5 MG TABLET PO SCH ×2 (08:28→20:56)
[2022-04-08] MEDS: FUROSEMIDE 20 MG TABLET PO SCH (08:28)
[2022-04-08] MEDS ORDERED: POTASSIUM CHLORIDE 20 MEQ TAB.PRT.SR PO ONE (08:30)
--- NOTE | 2022-04-08 09:17 | NUR ---
RN-CO: PATIENT IS CONFUSED AND ALERT TO NAME ONLY. HE NEEDS ASSISTANCE IN ADL DUE TO HIS MENTAL STATE. HE IS RESTLESS AT TIMES BUT TOOK HIS MEDICATIONS. HE NEEDS REASSURANCE BECAUSE HE IS ANXIOUS. I WILL CONTINUE PLAN OF CARE.
--- NOTE | 2022-04-08 09:42 | NUR ---
JEMMA Initial Discharge Plan: Patient currently resides at [facility] [address] [place] [address] ([phone]). JEMMA reached out to Cecilia Michelle ([phone]) to see if pt is welcomed back, Cecilia, stated she will contact this medical writer. JEMMA will work with the MD, pt, and family to help coordinate appropriate discharge.
--- NOTE | 2022-04-08 09:42 | NUR ---
JEMMA Clinical Note: Pt placed on a 5150 hold for GD and danger to others. Pt was striking out at staff at his facility and was uncooperative. Patient currently resides at [facility] [place] [address] ([phone]). JEMMA reached out to Cecilia Michelle ([phone]) to see if pt is welcomed back, Cecilia, stated she will contact this automotive service writer.
--- NOTE | 2022-04-08 09:43 | NUR ---
Treatment Plan: Pt refused to sign treatment plan due to pt being very confused.
--- NOTE | 2022-04-08 10:16 | NUR ---
Facility Contact: SW received a call from Cecilia Michelle ([phone]) who stated that when pt is ready for dc he is welcomed back.
--- NOTE | 2022-04-08 10:22 | NUR ---
JEMMA Family Contact: JEMMA contacted pt's daughter Raven ([phone]) and discussed treatment and discharge plan. She is aware and would want pt back to [facility] upon discharge.
--- NOTE | 2022-04-08 10:31 | NUR ---
RN-CO: Notified Dr Ronquillo. regarding UA result. Awaiting to for response. Enc pt to drink water.
[2022-04-08] MEDS: QUETIAPINE FUMARATE 25 MG TABLET PO SCH ×3 (11:28→21:11)
--- NOTE | 2022-04-08 12:13 | NUR ---
RN-CO: DR CLARK NO NEW ORDER FOR UA RESULT.
[2022-04-08] MEDS: LORAZEPAM 0.5 MG TABLET PO PRN (14:36)
--- NOTE | 2022-04-08 14:37 | NUR ---
RN-CO: ATIVAN 1 MG PO GIVEN FOR RESTLESSNESS.
[2022-04-08 16:00] VITALS: BP 120/70
[2022-04-08] MEDS: DOCUSATE SODIUM 100 MG CAPSULE PO SCH (17:40)
[2022-04-08 20:00] VITALS: BP 138/78
--- NOTE | 2022-04-09 05:24 | NUR ---
RN NOTES: PATIENT IS CURRENTLY SLEEPING. NO S/S OF DISTRESS. NO CHANGE OF CONDITION NOTED, NO BEHAVIOR PROBLEMS NOTED. ALL NEEDS ATTENDED AND ANTICIPATED. WILL CONTINUE TO MONITOR Q15 FOR MOOD, SAFETY AND BEHAVIOR.
[2022-04-09 08:00] VITALS: BP 129/78
[2022-04-09] MEDS: FUROSEMIDE 20 MG TABLET PO SCH (08:29)
[2022-04-09] MEDS: QUETIAPINE FUMARATE 25 MG TABLET PO SCH ×3 (08:30→21:17)
[2022-04-09] MEDS: MEMANTINE HCL 5 MG TABLET PO SCH ×2 (08:30→21:00)
[2022-04-09 16:00] VITALS: BP 142/79
--- NOTE | 2022-04-09 17:00 | NUR ---
RN NOTES SEROQUEL NOT ADMINISTERED , PATIENT IS SLEEPY AND DROWSY.
[2022-04-09] MEDS: DOCUSATE SODIUM 100 MG CAPSULE PO SCH (17:36)
--- NOTE | 2022-04-09 17:38 | NUR ---
RN NOTES COLACE NOT ADMINISTERED PATIENT IS SLEEPY AND DROWSY.
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
[2022-04-09] MEDS: ACETAMINOPHEN 325 MG TABLET PO PRN (18:26)
[2022-04-09 20:14] VITALS: BP 100/61
--- NOTE | 2022-04-10 06:58 | NUR ---
RN NOTES: COLLECT URINE SPECIMEN AND AWAITING LAB TO PATIENT SAFETY COORDINATOR URINE SPECIMEN , ENDORSE TO ON COMING NURSE.
--- NOTE | 2022-04-10 07:23 | NUR ---
RN NOTES: COLLECT URINE SPECIMEN AND SEND TO LAB.
[2022-04-10 08:00] VITALS: BP 114/70
[2022-04-10] MEDS: MEMANTINE HCL 5 MG TABLET PO SCH ×2 (08:38→21:19)
[2022-04-10] MEDS: QUETIAPINE FUMARATE 25 MG TABLET PO SCH ×3 (08:39→22:03)
[2022-04-10] MEDS: FUROSEMIDE 20 MG TABLET PO SCH (08:39)
[2022-04-10 09:49] LABS: BILIRUBIN,URINE NEGATIVE (NEGATIVE); COLOR,URINE YELLOW (YELLOW); LEUKOCYTE ESTERASE ,URINE SMALL (NEGATIVE); NITRITE, URINE NEGATIVE (NEGATIVE); PH,URINE 5.5 (5.0-8.0); PROTEIN,URINE 100 mg/dl (NEGATIVE); UGLUCOSE NEGATIVE (NEGATIVE); UROBILINOGEN,URINE 0.2 EU/dL (0.2)
[2022-04-10 10:24] LABS: BACTERIA,URINE Few /HPF (None Seen); SQUAMOUS EPITHELIAL CELL,UR None Seen /HPF (None Seen)
--- NOTE | 2022-04-10 14:32 | NUR ---
ATTEMPTING TO GET OOB PERIODICALLY.BED ALARM SET.
[2022-04-10 16:00] VITALS: BP 120/72
[2022-04-10] MEDS: DOCUSATE SODIUM 100 MG CAPSULE PO SCH (17:23)
--- NOTE | 2022-04-10 18:15 | NUR ---
WAS IN DINING RM.NOW BACK TO RM.
[2022-04-10 20:06] VITALS: BP 104/71
[2022-04-11 08:00] VITALS: BP 124/80
[2022-04-11] MEDS: FUROSEMIDE 20 MG TABLET PO SCH (08:37)
[2022-04-11] MEDS: QUETIAPINE FUMARATE 25 MG TABLET PO SCH ×3 (08:37→21:17)
[2022-04-11] MEDS: MEMANTINE HCL 5 MG TABLET PO SCH ×2 (08:39→21:17)
[2022-04-11 16:00] VITALS: BP 115/63
[2022-04-11] MEDS: DOCUSATE SODIUM 100 MG CAPSULE PO SCH (17:21)
[2022-04-11 20:30] VITALS: BP 107/70
[2022-04-12 08:00] VITALS: BP 105/64
[2022-04-12] MEDS: MEMANTINE HCL 5 MG TABLET PO SCH ×2 (08:30→21:32)
[2022-04-12] MEDS: FUROSEMIDE 20 MG TABLET PO SCH (08:30)
[2022-04-12] MEDS: QUETIAPINE FUMARATE 25 MG TABLET PO SCH ×3 (08:32→21:32)
[2022-04-12 16:00] VITALS: BP 149/74
[2022-04-12] MEDS: DOCUSATE SODIUM 100 MG CAPSULE PO SCH (17:09)
[2022-04-12 20:17] VITALS: BP 140/81
[2022-04-12] MEDS: ZOLPIDEM TARTRATE 5 MG TABLET PO PRN (21:32)
--- NOTE | 2022-04-12 21:35 | NUR ---
Pt c/o insomnia. Least restrictive measures ineffective. Ambien 5 mg 1 tab po prn given as ordered. Will continue to monitor.
--- NOTE | 2022-04-12 22:40 | NUR ---
Post 1 hr Dellien effective. Pt asleep in bed easy to arouse. Frequent visual check done for safety. Will continue to monitor. Will endorse to next shift.
[2022-04-13 08:00] VITALS: BP 102/56
[2022-04-13] MEDS: FUROSEMIDE 20 MG TABLET PO SCH (08:49)
[2022-04-13] MEDS: MEMANTINE HCL 5 MG TABLET PO SCH ×2 (08:49→21:12)
[2022-04-13] MEDS: QUETIAPINE FUMARATE 25 MG TABLET PO SCH ×3 (08:49→21:12)
[2022-04-13 16:00] VITALS: BP 106/74
[2022-04-13] MEDS: DOCUSATE SODIUM 100 MG CAPSULE PO SCH (17:45)
--- NOTE | 2022-04-13 19:15 | NUR ---
GPS RN NOTES RECEIVED PATIENT AWAKE, ALERT AND ORIENTED X1, NO S/SX OF ACUTE DISTRESS NOTED. PATIENT REMAINS CONFUSED, DISORGANIZED, ANXIOUS BUT COOPERATIVE TO CARE. SAFETY PRECAUTIONS MAINTAINED. WILL CONTINUE TO MONITOR Q15MIN ROUNDS FOR SAFETY AND BEHAVIOR.
[2022-04-13 19:50] VITALS: BP 126/61
[2022-04-13] MEDS: ZOLPIDEM TARTRATE 5 MG TABLET PO PRN (21:42)
[2022-04-14 08:00] VITALS: BP 120/79
[2022-04-14] MEDS: MEMANTINE HCL 5 MG TABLET PO SCH ×2 (08:45→21:11)
[2022-04-14] MEDS: FUROSEMIDE 20 MG TABLET PO SCH (08:45)
[2022-04-14] MEDS: QUETIAPINE FUMARATE 25 MG TABLET PO SCH ×3 (08:45→21:10)
--- NOTE | 2022-04-14 09:13 | NUR ---
Court Notification: SW contacted pt's daughter Raven ([phone]) and left a voicemail of pt's 1923 hearing today.
[2022-04-14] MEDS: ACETAMINOPHEN 325 MG TABLET PO PRN (11:31)
--- NOTE | 2022-04-14 11:32 | NUR ---
Patient c/o headache medicated with tylenol 650mg will continue to monitor.
[2022-04-14] MEDS: LORAZEPAM 0.5 MG TABLET PO PRN (11:39)
--- NOTE | 2022-04-14 11:40 | NUR ---
Patient c/o anxiety medicated with Ativan 1mg x1 will continue to monitor .
[2022-04-14 12:56] VITALS: BP 122/58
[2022-04-14 13:01] VITALS: BP 122/58
--- NOTE | 2022-04-14 13:17 | NUR ---
Court Hearing: Patient's court hearing for [id number] was today and it was upheld for GD.
[2022-04-14 16:00] VITALS: BP 117/87
[2022-04-14] MEDS: DOCUSATE SODIUM 100 MG CAPSULE PO SCH (17:54)
--- NOTE | 2022-04-14 19:15 | NUR ---
GPS RN NOTES RECEIVED PATIENT AWAKE, ALERT AND ORIENTED X1, NO S/SX OF ACUTE DISTRESS NOTED. PATIENT REMAINS CONFUSED, DISORGANIZED, DISORIENTED, ANXIOUS BUT COOPERATIVE TO CARE. SAFETY PRECAUTIONS MAINTAINED. WILL CONTINUE TO MONITOR Q15MIN ROUNDS FOR SAFETY AND BEHAVIOR.
[2022-04-14 20:08] VITALS: BP 132/65
[2022-04-14] MEDS: ZOLPIDEM TARTRATE 5 MG TABLET PO PRN (22:20)
[2022-04-15] MEDS: LORAZEPAM 0.5 MG TABLET PO PRN (01:13)
[2022-04-15] MEDS: ACETAMINOPHEN 325 MG TABLET PO PRN (02:11)
[2022-04-15 08:00] VITALS: BP 137/66
[2022-04-15] MEDS: FUROSEMIDE 20 MG TABLET PO SCH (08:41)
[2022-04-15] MEDS: MEMANTINE HCL 5 MG TABLET PO SCH ×2 (08:41→21:14)
[2022-04-15] MEDS: QUETIAPINE FUMARATE 25 MG TABLET PO SCH ×3 (08:42→22:07)
[2022-04-15 16:00] VITALS: BP 128/85
[2022-04-15] MEDS: DOCUSATE SODIUM 100 MG CAPSULE PO SCH (17:04)
[2022-04-15] MEDS: Z GUARD REMEDY 4 OZ OINT TP PRN (19:43)
[2022-04-15 20:00] VITALS: BP 132/68
--- NOTE | 2022-04-15 23:16 | NUR ---
RN NOTES :PATIENT RESTING IN BED, NO S/SX OF ACUTE DISTRESS NOTED. PATIENT EASILY AGITATED CONFUSED, DISORGANIZED, DISORIENTED, ANXIOUS BUT COOPERATIVE TO CARE. SAFETY PRECAUTIONS MAINTAINED. WILL CONTINUE TO MONITOR Q15MIN ROUNDS FOR SAFETY AND BEHAVIOR.
[2022-04-16 08:00] VITALS: BP 100/59
[2022-04-16] MEDS: MEMANTINE HCL 5 MG TABLET PO SCH ×2 (08:32→21:08)
[2022-04-16] MEDS: FUROSEMIDE 20 MG TABLET PO SCH (08:32)
[2022-04-16] MEDS: QUETIAPINE FUMARATE 25 MG TABLET PO SCH ×3 (08:32→21:08)
--- NOTE | 2022-04-16 09:39 | NUR ---
JEMMA Family Contact: JEMMA contacted patient's daughter Raven ([phone]) and left a detailed voicemail of dc plan back to [facility] on 04/19.
[2022-04-16 15:45] VITALS: BP 138/77
[2022-04-16] MEDS: DOCUSATE SODIUM 100 MG CAPSULE PO SCH (17:20)
--- NOTE | 2022-04-16 18:00 | NUR ---
RN NOTES PATIENT EASILY CONFUSED, DISORGANIZED, DISORIENTED, ANXIOUS BUT COOPERATIVE TO CARE. SAFETY PRECAUTIONS MAINTAINED. VSS STABLE, WILL ENDORSE TO ANIMAL ECOLOGIST NURSE FOR CONTINUITY OF CARE .
[2022-04-16 20:00] VITALS: BP 110/63
--- NOTE | 2022-04-16 22:48 | NUR ---
RN NOTES : PATIENT RESTING IN BED, NO S/SX OF ACUTE DISTRESS NOTED. PATIENT EASILY AGITATED CONFUSED, DISORGANIZED, DISORIENTED, ANXIOUS BUT COOPERATIVE TO CARE. SAFETY PRECAUTIONS MAINTAINED. WILL CONTINUE TO MONITOR Q15MIN ROUNDS FOR SAFETY AND BEHAVIOR.
[2022-04-17 08:00] VITALS: BP 110/59
[2022-04-17] MEDS: QUETIAPINE FUMARATE 25 MG TABLET PO SCH ×3 (08:20→21:25)
[2022-04-17] MEDS: MEMANTINE HCL 5 MG TABLET PO SCH ×2 (08:20→20:38)
[2022-04-17] MEDS: FUROSEMIDE 20 MG TABLET PO SCH (08:21)
[2022-04-17 15:53] VITALS: BP 97/61
[2022-04-17] MEDS: DOCUSATE SODIUM 100 MG CAPSULE PO SCH (17:21)
[2022-04-17 20:54] VITALS: BP 109/62
--- NOTE | 2022-04-18 07:20 | NUR ---
GPS RN NOTE RECEIVED PATIENT AWAKE AND IN BED, NO S/S OR COMPLAINTS OF PAIN AT THIS TIME. PATIENT IS DISPLAYING NO S/S OF APPARENT DISTRESS AT THIS TIME. PATIENT'S BREATHING IS UNLABORED WITH EQUAL RISE AND FALL OF THE CHEST. PATIENT IS ALERT AND ORIENTED X 1-2 ON ROOM AIR WITH A SPO2 OF 96%. PATIENT IS COMPLIANT WITH MEDICATION, DISORGANIZED, RESPONDING TO INTERNAL STIMULI, COOPERATIVE AND APPRECIATIVE. PATIENT DENIES SUICIDE IDEATIONS AND HOMICIDAL IDEATIONS AT THIS TIME. PATIENT ASSISTED WITH TURNING AND REPOSITIONING Q2 HR AND PRN FOR COMFORT AND CIRCULATION. PATIENT HAS NO NEEDS AT THIS TIME. PATIENT EDUCATED ON THE USE OF THE CALL RUSH. PATIENT BED SIDE RAILS UP X2 FOR SAFETY, BED IN LOCKED AND LOW. WILL CONTINUE TO MONITOR Q 15 MIS WITH THE HELP OF STAFF TO MAINTAIN SAFETY.
[2022-04-18 08:00] VITALS: BP 118/78
[2022-04-18] MEDS: FUROSEMIDE 20 MG TABLET PO SCH (08:33)
[2022-04-18] MEDS: MEMANTINE HCL 5 MG TABLET PO SCH ×2 (08:34→21:18)
[2022-04-18] MEDS: QUETIAPINE FUMARATE 25 MG TABLET PO SCH ×3 (08:34→21:18)
[2022-04-18 16:00] VITALS: BP 123/75
[2022-04-18] MEDS: DOCUSATE SODIUM 100 MG CAPSULE PO SCH (17:17)
--- NOTE | 2022-04-18 18:35 | NUR ---
GPS RN NOTE PATIENT WITH ORDER FOR COVID TEST. SPECIMEN COLLECTED AND WILL BE SENT TO LABORATORY ORDERED. PROCEDURE TOLERATED WELL.
--- NOTE | 2022-04-18 18:54 | NUR ---
GPS RN NOTE PATIENT AWAKE AND IN BED, NO S/S OR COMPLAINTS OF PAIN AT THIS TIME. PATIENT IS DISPLAYING NO S/S OF APPARENT DISTRESS AT THIS TIME. PATIENT'S BREATHING IS UNLABORED WITH EQUAL RISE AND FALL OF THE CHEST. PATIENT IS ALERT AND ORIENTED X 1-2 ON ROOM AIR WITH A SPO2 OF 100%. PATIENT IS COMPLIANT WITH MEDICATION, DISORGANIZED, RESPONDING TO INTERNAL STIMULI, COOPERATIVE AND APPRECIATIVE. PATIENT DENIES SUICIDE IDEATIONS AND HOMICIDAL IDEATIONS AT THIS TIME. PATIENT ASSISTED WITH TURNING AND REPOSITIONING Q2 HR AND PRN FOR COMFORT AND CIRCULATION. PATIENT HAS NO NEEDS AT THIS TIME. PATIENT EDUCATED ON THE USE OF THE CALL RUSH. PATIENT BED SIDE RAILS UP X2 FOR SAFETY, BED IN LOCKED AND LOW. WILL ENDORSE PATIENT FOR CONTINUITY OF CARE.
--- NOTE | 2022-04-18 19:51 | NUR ---
Nurse Opening Notes: RECEIVED PATIENT AWAKE AND IN BED, NO S/S OR COMPLAINTS OF PAIN AT THIS TIME. PATIENT IS DISPLAYING NO S/S OF APPARENT DISTRESS AT THIS TIME. PATIENT'S BREATHING IS UNLABORED WITH EQUAL RISE AND FALL OF THE CHEST. PATIENT IS ALERT AND ORIENTED X 1-2 ON ROOM AIR WITH A SPO2 OF 99%. PATIENT IS COMPLIANT WITH MEDICATION, DISORGANIZED, RESPONDING TO INTERNAL STIMULI, COOPERATIVE AND APPRECIATIVE. PATIENT DENIES SUICIDE IDEATIONS AND HOMICIDAL IDEATIONS AT THIS TIME. PATIENT ASSISTED WITH TURNING AND REPOSITIONING Q2 HR AND PRN FOR COMFORT AND CIRCULATION. PATIENT HAS NO NEEDS AT THIS TIME. PATIENT EDUCATED ON THE USE OF THE CALL RUSH. PATIENT BED SIDE RAILS UP X2 FOR SAFETY, BED IN LOCKED AND LOW. WILL CONTINUE TO MONITOR Q 15 MIS WITH THE HELP OF STAFF TO MAINTAIN SAFETY.
[2022-04-18 20:07] VITALS: BP 130/71
--- NOTE | 2022-04-19 05:24 | NUR ---
GPS closing notes: Pt still in bed sleeping, no s/s of pain and discomfort, respiration is unlabored, no SOB noted, all needs attended.
--- NOTE | 2022-04-19 07:14 | NUR ---
Nurses Notes: Pt refused tuesday skin ck.
--- NOTE | 2022-04-19 07:44 | NUR ---
Discharge Note: Patient will be discharged to [facility] [address] [address], [place] [address] ([phone]). Please arrange ambulance transportation at 1PM. Spoke with Breanna, Admin Coordinator at the facility who states they are ready to accept the patient today. Patients daughter Raven ([phone]) is aware and agreeable of dc. Patient is alert and oriented x1, is unable to plan for self-care at this time, however, is willing to accept care at [facility]. Patient denies any suicidal or homicidal ideation. Patient will follow-up at the facility with Dr. Chan (psychiatrist) [address] [address]; ([phone]) and (Sizing Machine Operator) Dr. Ronquillo [address], [place] [address]; ([phone]). Patient presents with euthymic mood and congruent affect. Addendum: 04/19/22 at 1148 by JEMMA CAMACHO discharge canceled due to covid outbreak
[2022-04-19 08:00] VITALS: BP 133/76
[2022-04-19] MEDS: MEMANTINE HCL 5 MG TABLET PO SCH ×2 (08:36→21:06)
[2022-04-19] MEDS: QUETIAPINE FUMARATE 25 MG TABLET PO SCH ×3 (08:36→21:52)
[2022-04-19] MEDS: FUROSEMIDE 20 MG TABLET PO SCH (08:36)
--- NOTE | 2022-04-19 14:18 | NUR ---
RN-CO: Discharge was canceled due to covid "outbreak" in the facility.
[2022-04-19 16:00] VITALS: BP 153/85
[2022-04-19] MEDS: DOCUSATE SODIUM 100 MG CAPSULE PO SCH (17:43)
[2022-04-19 20:26] VITALS: BP 107/57
[2022-04-19 21:00] VITALS: BP 113/65
--- NOTE | 2022-04-20 05:26 | NUR ---
RN NOTES:PATIENT RESTING IN ROOM, NO S/SX OF ACUTE DISTRESS NOTED. PATIENT EASILY AGITATED CONFUSED, DISORGANIZED, DISORIENTED, ANXIOUS BUT COOPERATIVE TO CARE. SAFETY PRECAUTIONS MAINTAINED. WILL CONTINUE TO MONITOR Q15MIN ROUNDS FOR SAFETY AND BEHAVIOR.
[2022-04-20 08:00] VITALS: BP 144/79
--- NOTE | 2022-04-20 08:54 | NUR ---
JEMMA SNF Referral: JEMMA sent referral to Itzel felipe from [facility] ([phone]) for placement. JEMMA sent H & P, progress notes, and medication list.
[2022-04-20] MEDS: MEMANTINE HCL 5 MG TABLET PO SCH ×2 (09:32→20:25)
[2022-04-20] MEDS: QUETIAPINE FUMARATE 25 MG TABLET PO SCH ×3 (09:33→21:10)
[2022-04-20] MEDS: FUROSEMIDE 20 MG TABLET PO SCH (09:33)
--- NOTE | 2022-04-20 12:19 | NUR ---
SW Family Contact: Patients daughter Raven ([phone]) is aware and agreeable of dc of pt going to [facility].
--- NOTE | 2022-04-20 12:21 | NUR ---
JEMMA SNF Contact: JEMMA spoke with Itzel felipe from [facility] ([phone]) who stated pt is accepted.
[2022-04-20 16:00] VITALS: BP 131/72
[2022-04-20] MEDS: DOCUSATE SODIUM 100 MG CAPSULE PO SCH (17:23)
[2022-04-20 19:45] VITALS: BP 112/73
--- NOTE | 2022-04-20 20:06 | NUR ---
RN NOTES: PATIENT WATCHING TV IN DAY ROOM,AWAKE, ALERT, NO S/SX OF ACUTE DISTRESS NOTED. PATIENT EASILY AGITATED CONFUSED, DISORGANIZED, DISORIENTED, ANXIOUS BUT COOPERATIVE TO CARE. SAFETY PRECAUTIONS MAINTAINED. WILL CONTINUE TO MONITOR Q15MIN ROUNDS FOR SAFETY AND BEHAVIOR.
[2022-04-21] MEDS: Z GUARD REMEDY 4 OZ OINT TP PRN (06:44)
[2022-04-21 08:00] VITALS: BP 114/63
[2022-04-21] MEDS: MEMANTINE HCL 5 MG TABLET PO SCH (08:14)
[2022-04-21] MEDS: QUETIAPINE FUMARATE 25 MG TABLET PO SCH (08:14)
[2022-04-21] MEDS: FUROSEMIDE 20 MG TABLET PO SCH (08:14)
--- NOTE | 2022-04-21 08:15 | NUR ---
SW Discharge Note: Patient will be discharged to a locked assisted facility to [facility] [address] [place] [address]; ([phone]). Please arrange ambulance transportation. Trans Router spoke with Raven, Assistant Property Manager at [facility]; ([phone]), who stated patient will be accepted at facility today. Patient is alert and oriented x1. Patient denies any suicidal or homicidal ideations. Patient is aware and agreeable with discharge plans. Patients daughter Raven ([phone]) is aware and agreeable of dc. Patient will follow-up at the facility with Dr. Chan (psychiatrist) [address] [address]; ([phone]) and (Transmission Supervisor) Dr. Ronquillo [address] [facility] [address], [place] [address]; ([phone]). Patient presents with euthymic mood and congruent affect.
--- NOTE | 2022-04-21 15:30 | NUR ---
Patient discharged to [facility] in stable condition.Compliant with medications cooperative with treatment plans Patient denies SI/HI/AVH .Behavior improved ,psychiatric tx plans met medical tx plans differed for for continual monitoring .Educated pt about after care plan (Exit -care)and copy provided .Returned personal belongings . patient med list given and explained to patient able to verbalize understanding .Vs stable ,no c/o pain Patient seen by Dr. Shields with discharge orders and Will Franco DNP called back with discharge orders ,all orders carried out. .Patient discharge at 1530 with Ambulance .
[2022-04-21 16:00] VITALS: BP 114/76
== END 2022-04-21 15:30 | DRG 885 ==
LOC: ER 13:17 → GPS 22:29
PROVIDERS: ADMIT Psychiatry & Neurology Psychiatry; ATTEND Nurse Practitioner Acute Care
DX: F29 Unspecified psychosis not due to a substance or known physiological condition (principal); I11.0 Hypertensive heart disease with heart failure; I50.30 Unspecified diastolic (congestive) heart failure; F02.81 Dementia in other diseases classified elsewhere, unspecified severity, with behavioral disturbance; G30.9 Alzheimer's disease, unspecified; Z86.61 Personal history of infections of the central nervous system; K21.9 Gastro-esophageal reflux disease without esophagitis; Z79.51 Long term (current) use of inhaled steroids; N40.0 Benign prostatic hyperplasia without lower urinary tract symptoms; Z79.899 Other long term (current) drug therapy; E78.5 Hyperlipidemia, unspecified; F32.A Depression, unspecified; F41.9 Anxiety disorder, unspecified; Z73.6 Limitation of activities due to disability; R53.1 Weakness; R27.8 Other lack of coordination; Z91.81 History of falling; Z66 Do not resuscitate; M19.90 Unspecified osteoarthritis, unspecified site
CPT/HCPCS: 36415; 80048-TC; 80053-TC; 80061-TC; 80076-TC; 81001; 82962-TC; 84443-TC; 85025-TC; 87081-TC; 87086-TC; 97116-TC; 97530-TC; C9803; G0480

== ENCOUNTER 2023-05-02 16:15 | Inpatient (IN) | payer MEDICARE, OTHER ==
[~2023-05-02] VITALS: Ht 165.1 cm; Wt 64.6 kg
[~2023-05-02 16:15] MED LIST changes: +ALBU8.5H8 IH
[2023-05-02 16:51] LABS: BASOPHILS # (AUTO) 0.1 K/uL (0.0-0.2); BASOPHILS % (AUTO) 0.7 % (0.0-2.0); EOSINOPHILS % (AUTO) 0.5 % (0.0-6.0); HEMATOCRIT 39 % (39-51); LYMPHOCYTES # (AUTO) 0.9 K/uL (0.8-4.8); LYMPHOCYTES % (AUTO) 9.7 % (20.0-44.0); MEAN CORPUSCULAR HEMOGLOBIN 33 PG (26.0-33.0); MEAN CORPUSCULAR HGB CONC 33 g/dl (31.0-36.0); MEAN CORPUSCULAR VOLUME 99 fL (80-96); MONOCYTES # (AUTO) 0.9 K/uL (0.1-1.30); MONOCYTES % (AUTO) 9.3 % (2.0-12.0); NEUTROPHILS # (AUTO) 7.7 K/uL (1.8-8.9); NEUTROPHILS % (AUTO) 79.8 % (43.0-81.0); PLATELET COUNT (AUTO) 218 K/uL (150-450); RED BLOOD CELL COUNT(AUTO) 3.95 MIL/uL (4.5-6.0); RED CELL DISTRIBUTION WIDTH 14.3 % (11.5-15.0); WHITE BLOOD COUNT (AUTO) 9.7 K/uL (4.3-11.0)
[2023-05-02 17:11] LABS: ALANINE AMINOTRANSFERASE 37 U/L (12-78); ALBUMIN 3.7 g/dL (3.4-5.0); ALKALINE PHOSPHATASE 90 U/L (46-116); ASPARTATE AMINOTRANSFERASE 17 U/L (15-37); BILIRUBIN,DIRECT 0.1 mg/dL (0.0-0.2); BILIRUBIN,TOTAL 0.5 mg/dL (0.2-1.0); CALCIUM, SERUM 9.7 mg/dL (8.5-10.1); CARBON DIOXIDE 25 mmol/L (21-32); CHLORIDE 109 mmol/L (98-107); CREATININE 1.2 mg/dL (0.6-1.3); GLUCOSE 109 mg/dL (74-106); SODIUM SERUM 143 mmol/L (136-145); TOTAL PROTEIN, SERUM 7.7 g/dL (6.4-8.2); UREA NITROGEN, BLOOD 35 mg/dL (7-18)
[2023-05-02 22:25] VITALS: BP_SYST 106; BP_SYST 133; BP_DIAS 53; BP_DIAS 80; TEMP 98; O2SAT 97; O2SAT 99
[2023-05-03] MEDS ORDERED: ONDANSETRON HCL/PF 4 MG/2 ML VIAL IVP PRN (02:30)
[2023-05-03] MEDS ORDERED: ZOLPIDEM TARTRATE 5 MG TABLET PO PRN (02:30)
[2023-05-03] MEDS ORDERED: MAGNESIUM HYDROXIDE 30 ML UDC PO PRN (02:30)
[2023-05-03] MEDS ORDERED: ACETAMINOPHEN 325 MG TABLET PO PRN (02:30)
[2023-05-03] MEDS ORDERED: Z GUARD REMEDY 4 OZ OINT TP PRN (02:30)
[2023-05-03] MEDS ORDERED: MAG HYDROX/AL HYDROX/SIMETH 30 ML UDC PO PRN (02:30)
[2023-05-03 06:19] LABS: BASOPHILS % (AUTO) 0.5 % (0.0-2.0); EOSINOPHILS # (AUTO) 0.1 K/uL (0.0-0.7); EOSINOPHILS % (AUTO) 1.8 % (0.0-6.0); HEMATOCRIT 40 % (39-51); HEMOGLOBIN 13.2 g/dL (13.5-17.5); LYMPHOCYTES # (AUTO) 1.1 K/uL (0.8-4.8); LYMPHOCYTES % (AUTO) 15.7 % (20.0-44.0); MEAN CORPUSCULAR HEMOGLOBIN 34 PG (26.0-33.0); MEAN CORPUSCULAR HGB CONC 33 g/dl (31.0-36.0); MEAN CORPUSCULAR VOLUME 102 fL (80-96); MONOCYTES # (AUTO) 0.8 K/uL (0.1-1.30); MONOCYTES % (AUTO) 11.8 % (2.0-12.0); NEUTROPHILS # (AUTO) 4.9 K/uL (1.8-8.9); NEUTROPHILS % (AUTO) 70.2 % (43.0-81.0); PLATELET COUNT (AUTO) 206 K/uL (150-450); RED BLOOD CELL COUNT(AUTO) 3.93 MIL/uL (4.5-6.0); RED CELL DISTRIBUTION WIDTH 14.7 % (11.5-15.0); WHITE BLOOD COUNT (AUTO) 6.9 K/uL (4.3-11.0)
[2023-05-03 07:11] LABS: CALCIUM, SERUM 9.3 mg/dL (8.5-10.1); CREATININE 1.1 mg/dL (0.6-1.3); MAGNESIUM 2.5 mg/dL (1.8-2.4); PHOSPHORUS 2.5 mg/dL (2.5-4.9); POTASSIUM 3.7 mmol/L (3.5-5.1)
[2023-05-03 08:00] VITALS: BP 128/69; TEMP 98.5; O2SAT 97
[2023-05-03] MEDS ORDERED: PANTOPRAZOLE 40 MG VIAL IV SCH (09:00)
[2023-05-03] MEDS ORDERED: ALBUTEROL FS 2.5 MG/3 ML VIAL.NEB NEB PRN (14:30)
[2023-05-03] MEDS ORDERED: NA PHOS,M-B/NA PHOS,DI-BA 1 EA ENEMA RC PRN (14:30)
[2023-05-03 16:00] VITALS: BP 101/59; TEMP 98.5; O2SAT 97
[2023-05-03] MEDS: DOCUSATE SODIUM 100 MG CAPSULE PO SCH (17:29)
[2023-05-03 20:00] VITALS: BP 123/72; TEMP 98.7; O2SAT 97
[2023-05-03] MEDS: MEMANTINE HCL 5 MG TABLET PO SCH (20:34)
[2023-05-04 06:49] LABS: BASOPHILS % (AUTO) 0.5 % (0.0-2.0); EOSINOPHILS # (AUTO) 0.2 K/uL (0.0-0.7); EOSINOPHILS % (AUTO) 2.7 % (0.0-6.0); HEMATOCRIT 39 % (39-51); LYMPHOCYTES # (AUTO) 1.4 K/uL (0.8-4.8); LYMPHOCYTES % (AUTO) 21.3 % (20.0-44.0); MEAN CORPUSCULAR HEMOGLOBIN 33 PG (26.0-33.0); MEAN CORPUSCULAR HGB CONC 34 g/dl (31.0-36.0); MEAN CORPUSCULAR VOLUME 100 fL (80-96); MONOCYTES # (AUTO) 0.7 K/uL (0.1-1.30); MONOCYTES % (AUTO) 11.6 % (2.0-12.0); NEUTROPHILS # (AUTO) 4.1 K/uL (1.8-8.9); NEUTROPHILS % (AUTO) 63.9 % (43.0-81.0); PLATELET COUNT (AUTO) 198 K/uL (150-450); RED BLOOD CELL COUNT(AUTO) 3.88 MIL/uL (4.5-6.0); RED CELL DISTRIBUTION WIDTH 14.5 % (11.5-15.0); WHITE BLOOD COUNT (AUTO) 6.4 K/uL (4.3-11.0)
[2023-05-04 06:53] LABS: CALCIUM, SERUM 9.4 mg/dL (8.5-10.1); CARBON DIOXIDE 26 mmol/L (21-32); CHLORIDE 109 mmol/L (98-107); CREATININE 0.8 mg/dL (0.6-1.3); GLUCOSE 96 mg/dL (74-106); MAGNESIUM 2.4 mg/dL (1.8-2.4); PHOSPHORUS 2.6 mg/dL (2.5-4.9); POTASSIUM 3.9 mmol/L (3.5-5.1); SODIUM SERUM 143 mmol/L (136-145); UREA NITROGEN, BLOOD 25 mg/dL (7-18)
[2023-05-04 08:00] VITALS: BP 131/73; TEMP 97.8; O2SAT 97
[2023-05-04] MEDS: PANTOPRAZOLE 40 MG TABLET.DR PO SCH (08:36)
[2023-05-04] MEDS: MEMANTINE HCL 5 MG TABLET PO SCH ×2 (08:36→20:41)
[2023-05-04 15:00] VITALS: BP 141/76; TEMP 98; O2SAT 98
[2023-05-04] MEDS: DOCUSATE SODIUM 100 MG CAPSULE PO SCH (17:12)
[2023-05-04 19:00] VITALS: BP 137/84; TEMP 99.2; O2SAT 97
[2023-05-05 06:11] LABS: BASOPHILS % (AUTO) 0.7 % (0.0-2.0); EOSINOPHILS # (AUTO) 0.1 K/uL (0.0-0.7); EOSINOPHILS % (AUTO) 1.9 % (0.0-6.0); HEMATOCRIT 39 % (39-51); LYMPHOCYTES # (AUTO) 1.6 K/uL (0.8-4.8); LYMPHOCYTES % (AUTO) 26.3 % (20.0-44.0); MEAN CORPUSCULAR HEMOGLOBIN 33 PG (26.0-33.0); MEAN CORPUSCULAR HGB CONC 33 g/dl (31.0-36.0); MEAN CORPUSCULAR VOLUME 99 fL (80-96); MONOCYTES # (AUTO) 0.7 K/uL (0.1-1.30); NEUTROPHILS # (AUTO) 3.5 K/uL (1.8-8.9); NEUTROPHILS % (AUTO) 59.1 % (43.0-81.0); PLATELET COUNT (AUTO) 208 K/uL (150-450); RED BLOOD CELL COUNT(AUTO) 3.93 MIL/uL (4.5-6.0); RED CELL DISTRIBUTION WIDTH 13.9 % (11.5-15.0)
[2023-05-05 06:29] LABS: CALCIUM, SERUM 9.2 mg/dL (8.5-10.1); CREATININE 0.9 mg/dL (0.6-1.3); PHOSPHORUS 2.4 mg/dL (2.5-4.9); POTASSIUM 4.1 mmol/L (3.5-5.1)
[2023-05-05 08:00] VITALS: BP 138/76; TEMP 98.2; O2SAT 98
[2023-05-05 08:34] VITALS: BP 138/76; TEMP 98.2; O2SAT 98
[2023-05-05] MEDS: MEMANTINE HCL 5 MG TABLET PO SCH (09:28)
[2023-05-05] MEDS: PANTOPRAZOLE 40 MG TABLET.DR PO SCH (09:28)
[2023-05-05] MEDS ORDERED: NEUTRA PHOS 1 POWD.PACKET PO ONE (15:30)
[2023-05-05 15:50] VITALS: BP 118/70; TEMP 97.8; O2SAT 97
== END 2023-05-05 16:00 | DRG 640 ==
LOC: ER 16:48 → MED 21:49
PROVIDERS: ADMIT Nurse Practitioner Acute Care; ATTEND Nurse Practitioner Acute Care
DX: R62.7 Adult failure to thrive (principal); G93.41 Metabolic encephalopathy; J90 Pleural effusion, not elsewhere classified; F03.93 Unspecified dementia, unspecified severity, with mood disturbance; J98.11 Atelectasis; W18.30XA Fall on same level, unspecified, initial encounter; Y92.129 Unspecified place in nursing home as the place of occurrence of the external cause; I10 Essential (primary) hypertension; E78.5 Hyperlipidemia, unspecified; N40.0 Benign prostatic hyperplasia without lower urinary tract symptoms; I25.10 Atherosclerotic heart disease of native coronary artery without angina pectoris; R53.1 Weakness; S31.139S Puncture wound of abdominal wall without foreign body, unspecified quadrant without penetration into peritoneal cavity, sequela; W34.00XS Accidental discharge from unspecified firearms or gun, sequela; Z79.51 Long term (current) use of inhaled steroids; Z79.899 Other long term (current) drug therapy; F32.A Depression, unspecified
CPT/HCPCS: 36415; 70450-TC; 71045-TC; 72170-TC; 80048-TC; 80061-TC; 80076-TC; 83735-TC; 84100-TC; 84484-TC; 85025-TC; 87081-TC; 97110-TC; 97116-TC; 97530-TC; C9113; G0378

== ENCOUNTER 2023-06-22 19:34 | Inpatient (IN) | payer MEDICARE, OTHER ==
[~2023-06-22] VITALS: Ht 170.2 cm; Wt 64.4 kg
[~2023-06-22 19:34] MED LIST changes: -QUET25TA PO
[2023-06-22] MEDS ORDERED: IV NS 0.9% 1,000 ML BAG IV ONE (20:00)
[2023-06-22 20:47] LABS: BASOPHILS % (AUTO) 0.7 % (0.0-2.0); EOSINOPHILS # (AUTO) 0.1 K/uL (0.0-0.7); EOSINOPHILS % (AUTO) 1.8 % (0.0-6.0); HEMATOCRIT 38 % (39-51); HEMOGLOBIN 12.6 g/dL (13.5-17.5); LYMPHOCYTES # (AUTO) 1.6 K/uL (0.8-4.8); LYMPHOCYTES % (AUTO) 24.5 % (20.0-44.0); MEAN CORPUSCULAR HEMOGLOBIN 33 PG (26.0-33.0); MEAN CORPUSCULAR HGB CONC 33 g/dl (31.0-36.0); MEAN CORPUSCULAR VOLUME 100 fL (80-96); MONOCYTES # (AUTO) 0.7 K/uL (0.1-1.30); MONOCYTES % (AUTO) 10.1 % (2.0-12.0); NEUTROPHILS # (AUTO) 4.1 K/uL (1.8-8.9); NEUTROPHILS % (AUTO) 62.9 % (43.0-81.0); PLATELET COUNT (AUTO) 207 K/uL (150-450); RED BLOOD CELL COUNT(AUTO) 3.81 MIL/uL (4.5-6.0); WHITE BLOOD COUNT (AUTO) 6.5 K/uL (4.3-11.0)
[2023-06-22 20:59] LABS: SERUM AMMONIA 28 umol/L (11-32)
[2023-06-22 21:03] LABS: INR 1.03 (0.91-1.10); PARTIAL THROMBOPLASTIN TIME 29.1 SEC (24.3-34.3); PROTHROMBIN TIME 10.9 SECS (9.2-11.1)
[2023-06-22 21:06] LABS: LACTIC ACID 1.4 mmol/L (0.4-2.0)
[2023-06-22 21:13] LABS: THYROID STIMULATING HORMONE 1.824 uIU/mL (0.358-3.74)
[2023-06-22 21:16] LABS: ACETAMINOPHEN 15 ug/ml (10-30); ALANINE AMINOTRANSFERASE 30 U/L (12-78); ALCOHOL, BLOOD < 3 mg/dL (0-10); ALKALINE PHOSPHATASE 88 U/L (46-116); ASPARTATE AMINOTRANSFERASE 14 U/L (15-37); BILIRUBIN,DIRECT 0.1 mg/dL (0.0-0.2); BILIRUBIN,TOTAL 0.2 mg/dL (0.2-1.0); CALCIUM, SERUM 8.9 mg/dL (8.5-10.1); CARBON DIOXIDE 26 mmol/L (21-32); CHLORIDE 109 mmol/L (98-107); GLUCOSE 110 mg/dL (74-106); POTASSIUM 3.9 mmol/L (3.5-5.1); SALICYLATE 1.7 mg/dL (2.8-20.0); SODIUM SERUM 142 mmol/L (136-145); TOTAL PROTEIN, SERUM 6.7 g/dL (6.4-8.2); UREA NITROGEN, BLOOD 22 mg/dL (7-18)
[2023-06-22] MEDS ORDERED: MAGNESIUM HYDROXIDE 30 ML UDC PO PRN (22:00)
[2023-06-22] MEDS ORDERED: TEMAZEPAM 15 MG CAPSULE PO PRN (22:00)
[2023-06-22] MEDS ORDERED: Z GUARD REMEDY 4 OZ OINT TP PRN (22:00)
[2023-06-22] MEDS ORDERED: MAG HYDROX/AL HYDROX/SIMETH 30 ML UDC PO PRN (22:00)
[2023-06-22] MEDS ORDERED: ONDANSETRON HCL/PF 4 MG/2 ML VIAL IVP PRN (22:00)
[2023-06-22 22:14] LABS: APPEARANCE,URINE CLEAR (CLEAR); BILIRUBIN,URINE NEGATIVE (NEGATIVE); BLOOD, URINE TRACE-INTA Ery/uL (NEGATIVE); COLOR,URINE YELLOW (YELLOW); KETONES,URINE NEGATIVE (NEGATIVE); LEUKOCYTE ESTERASE ,URINE NEGATIVE (NEGATIVE); NITRITE, URINE NEGATIVE (NEGATIVE); PROTEIN,URINE TRACE mg/dl (NEGATIVE); UGLUCOSE NEGATIVE (NEGATIVE); UROBILINOGEN,URINE 0.2 EU/dL (0.2)
[2023-06-22 22:30] LABS: ADD URINE CULTURE NO; BACTERIA,URINE None seen /HPF (None Seen); MUCUS,URINE Few /LPF (None Seen); RBC,URINE 0-2 /HPF (0-2); SQUAMOUS EPITHELIAL CELL,UR None Seen /HPF (None Seen); WBC,URINE NONE SEEN /HPF (0-3)
[2023-06-22 22:42] LABS: AMPHETAMINE, URINE NEGATIVE (NEGATIVE); BARBITURATE, URINE NEGATIVE (NEGATIVE); BENZODIAZEPINE, URINE NEGATIVE (NEGATIVE); CANNABINOID, URINE NEGATIVE (NEGATIVE); COCCAINE, URINE NEGATIVE (NEGATIVE); OPIATE, URINE NEGATIVE (NEGATIVE); PHENCYCLIDINE SCREEN,URINE NEGATIVE (NEGATIVE)
[2023-06-23 00:22] VITALS: BP 133/74; TEMP 98.4; O2SAT 98
[2023-06-23] MEDS: IV NS 0.9% 1,000 ML IV PRN ×2 (01:02→17:43)
[2023-06-23 05:51] LABS: BASOPHILS % (AUTO) 0.5 % (0.0-2.0); EOSINOPHILS # (AUTO) 0.1 K/uL (0.0-0.7); HEMATOCRIT 36 % (39-51); HEMOGLOBIN 11.9 g/dL (13.5-17.5); LYMPHOCYTES # (AUTO) 1.2 K/uL (0.8-4.8); MEAN CORPUSCULAR HEMOGLOBIN 34 PG (26.0-33.0); MEAN CORPUSCULAR HGB CONC 34 g/dl (31.0-36.0); MEAN CORPUSCULAR VOLUME 100 fL (80-96); MONOCYTES # (AUTO) 0.5 K/uL (0.1-1.30); MONOCYTES % (AUTO) 10.2 % (2.0-12.0); NEUTROPHILS # (AUTO) 3.3 K/uL (1.8-8.9); NEUTROPHILS % (AUTO) 63.3 % (43.0-81.0); PLATELET COUNT (AUTO) 186 K/uL (150-450); RED BLOOD CELL COUNT(AUTO) 3.54 MIL/uL (4.5-6.0); RED CELL DISTRIBUTION WIDTH 14.1 % (11.5-15.0); WHITE BLOOD COUNT (AUTO) 5.2 K/uL (4.3-11.0)
[2023-06-23 06:29] LABS: CALCIUM, SERUM 8.1 mg/dL (8.5-10.1); CARBON DIOXIDE 26 mmol/L (21-32); CHLORIDE 110 mmol/L (98-107); CREATININE 0.8 mg/dL (0.6-1.3); GLUCOSE 95 mg/dL (74-106); PHOSPHORUS 2.6 mg/dL (2.5-4.9); POTASSIUM 3.8 mmol/L (3.5-5.1); SODIUM SERUM 143 mmol/L (136-145); UREA NITROGEN, BLOOD 16 mg/dL (7-18)
[2023-06-23] MEDS: PANTOPRAZOLE 40 MG TABLET.DR PO SCH (07:45)
[2023-06-23] MEDS ORDERED: AMIN30LI2 PO (08:35)
[2023-06-23] MEDS ORDERED: BISACODYL SUPP (10 MG) 10 MG/SUPP.RECT SUPP.RECT RC PRN (10:00)
[2023-06-23] MEDS ORDERED: ALBUTEROL FS 2.5 MG/3 ML VIAL.NEB NEB PRN (10:00)
[2023-06-23] MEDS: HYDROCODONE/APAP 5/325MG TABLET PO PRN (15:14)
[2023-06-23 17:01] VITALS: BP 105/68; TEMP 99.1
[2023-06-23 17:12] VITALS: BP 143/86; TEMP 100.4
[2023-06-23] MEDS: DOCUSATE SODIUM 100 MG CAPSULE PO SCH (17:15)
[2023-06-23] MEDS: ACETAMINOPHEN 325 MG TABLET PO PRN (17:15)
[2023-06-23 20:00] VITALS: BP 134/89; TEMP 98.1; O2SAT 97
[2023-06-23] MEDS: MEMANTINE HCL 5 MG TABLET PO SCH (21:22)
[2023-06-24] MEDS: HYDROCODONE/APAP 5/325MG TABLET PO PRN (03:25)
[2023-06-24 08:00] VITALS: BP 138/78; TEMP 98.2
[2023-06-24] MEDS: ACETAMINOPHEN 325 MG TABLET PO PRN (08:42)
[2023-06-24] MEDS: MEMANTINE HCL 5 MG TABLET PO SCH ×2 (08:43→21:08)
[2023-06-24] MEDS ORDERED: FUROSEMIDE 20 MG TABLET PO SCH (09:00)
[2023-06-24 09:19] LABS: BASOPHILS % (AUTO) 0.2 % (0.0-2.0); EOSINOPHILS % (AUTO) 0.1 % (0.0-6.0); HEMATOCRIT 40 % (39-51); HEMOGLOBIN 13.1 g/dL (13.5-17.5); LYMPHOCYTES # (AUTO) 0.6 K/uL (0.8-4.8); LYMPHOCYTES % (AUTO) 7.1 % (20.0-44.0); MEAN CORPUSCULAR HEMOGLOBIN 33 PG (26.0-33.0); MEAN CORPUSCULAR HGB CONC 33 g/dl (31.0-36.0); MEAN CORPUSCULAR VOLUME 101 fL (80-96); MONOCYTES # (AUTO) 0.5 K/uL (0.1-1.30); MONOCYTES % (AUTO) 5.7 % (2.0-12.0); NEUTROPHILS # (AUTO) 7.6 K/uL (1.8-8.9); NEUTROPHILS % (AUTO) 86.9 % (43.0-81.0); PLATELET COUNT (AUTO) 206 K/uL (150-450); RED BLOOD CELL COUNT(AUTO) 3.99 MIL/uL (4.5-6.0); RED CELL DISTRIBUTION WIDTH 14.1 % (11.5-15.0); WHITE BLOOD COUNT (AUTO) 8.7 K/uL (4.3-11.0)
[2023-06-24] MEDS: PANTOPRAZOLE 40 MG TABLET.DR PO SCH (09:28)
[2023-06-24] MEDS: ZOSYN IVPB 3.375 G in IV D5W 50ml IV SCH ×3 (09:28→17:14)
[2023-06-24] MEDS ORDERED: HYDROCODONE/APAP 5/325MG TABLET PO PRN (09:30)
[2023-06-24 09:52] LABS: CARBON DIOXIDE 26 mmol/L (21-32); CHLORIDE 107 mmol/L (98-107); CREATININE 1.2 mg/dL (0.6-1.3); GLUCOSE 136 mg/dL (74-106); POTASSIUM 4.6 mmol/L (3.5-5.1); SODIUM SERUM 141 mmol/L (136-145); UREA NITROGEN, BLOOD 14 mg/dL (7-18)
[2023-06-24] MEDS ORDERED: IOHEXOL-300 100 ML VIAL IV ONE (10:30)
[2023-06-24] MEDS ORDERED: IV NS 0.9% 250 ML IV ONE (10:31)
[2023-06-24 12:00] VITALS: BP 110/60; TEMP 99
[2023-06-24] MEDS ORDERED: PIPERACILLIN /TAZOBACTAM 4.5 G in IV D5W 50 ML IV SCH (12:00)
[2023-06-24] MEDS: IV NS 0.9% 1,000 ML IV PRN (12:14)
[2023-06-24] MEDS: DOCUSATE SODIUM 100 MG CAPSULE PO SCH (17:14)
[2023-06-24 20:00] VITALS: BP 123/72; TEMP 99; O2SAT 96
[2023-06-25] MEDS: ZOSYN IVPB 3.375 G in IV D5W 50ml IV SCH ×2 (00:14→05:17)
[2023-06-25] MEDS: IV NS 0.9% 1,000 ML IV PRN (03:37)
[2023-06-25 08:00] VITALS: BP 120/68; TEMP 98.6; O2SAT 95
[2023-06-25] MEDS: PANTOPRAZOLE 40 MG TABLET.DR PO SCH (08:18)
[2023-06-25] MEDS: MEMANTINE HCL 5 MG TABLET PO SCH (08:19)
[2023-06-25 11:25] LABS: BASOPHILS % (AUTO) 0.6 % (0.0-2.0); EOSINOPHILS # (AUTO) 0.1 K/uL (0.0-0.7); EOSINOPHILS % (AUTO) 1.6 % (0.0-6.0); HEMATOCRIT 36 % (39-51); HEMOGLOBIN 11.9 g/dL (13.5-17.5); LYMPHOCYTES # (AUTO) 1.1 K/uL (0.8-4.8); LYMPHOCYTES % (AUTO) 19.5 % (20.0-44.0); MEAN CORPUSCULAR HEMOGLOBIN 33 PG (26.0-33.0); MEAN CORPUSCULAR HGB CONC 33 g/dl (31.0-36.0); MEAN CORPUSCULAR VOLUME 100 fL (80-96); MONOCYTES # (AUTO) 0.6 K/uL (0.1-1.30); MONOCYTES % (AUTO) 9.8 % (2.0-12.0); NEUTROPHILS # (AUTO) 3.9 K/uL (1.8-8.9); NEUTROPHILS % (AUTO) 68.5 % (43.0-81.0); PLATELET COUNT (AUTO) 186 K/uL (150-450); RED BLOOD CELL COUNT(AUTO) 3.57 MIL/uL (4.5-6.0); RED CELL DISTRIBUTION WIDTH 14.2 % (11.5-15.0); WHITE BLOOD COUNT (AUTO) 5.7 K/uL (4.3-11.0)
[2023-06-25 11:26] LABS: ALANINE AMINOTRANSFERASE 23 U/L (12-78); ALBUMIN 2.8 g/dL (3.4-5.0); ALKALINE PHOSPHATASE 77 U/L (46-116); ASPARTATE AMINOTRANSFERASE 13 U/L (15-37); BILIRUBIN,TOTAL 0.6 mg/dL (0.2-1.0); CALCIUM, SERUM 8.4 mg/dL (8.5-10.1); CARBON DIOXIDE 26 mmol/L (21-32); CHLORIDE 107 mmol/L (98-107); CREATININE 1.9 mg/dL (0.6-1.3); GLUCOSE 176 mg/dL (74-106); MAGNESIUM 2.1 mg/dL (1.8-2.4); PHOSPHORUS 3.5 mg/dL (2.5-4.9); POTASSIUM 4.1 mmol/L (3.5-5.1); SODIUM SERUM 141 mmol/L (136-145); TOTAL PROTEIN, SERUM 6.4 g/dL (6.4-8.2)
[2023-06-25 11:41] LABS: UREA NITROGEN, BLOOD 21 mg/dL (7-18)
[2023-06-25] MEDS ORDERED: ENSURE ENLIVE 237 ML LIQUID (VANILLA) PO SCH (14:00)
== END 2023-06-25 14:10 | DRG 640 ==
LOC: ER 19:38 → MED 22:15
PROVIDERS: ADMIT Nurse Practitioner Acute Care; ATTEND Internal Medicine
DX: E86.0 Dehydration (principal); G93.41 Metabolic encephalopathy; E44.0 Moderate protein-calorie malnutrition; F02.83 Dementia in other diseases classified elsewhere, unspecified severity, with mood disturbance; N17.9 Acute kidney failure, unspecified; R62.7 Adult failure to thrive; I11.0 Hypertensive heart disease with heart failure; I50.9 Heart failure, unspecified; N40.0 Benign prostatic hyperplasia without lower urinary tract symptoms; Z20.822 Contact with and (suspected) exposure to COVID-19; F32.A Depression, unspecified; G30.9 Alzheimer's disease, unspecified; E78.5 Hyperlipidemia, unspecified; I25.10 Atherosclerotic heart disease of native coronary artery without angina pectoris; K21.9 Gastro-esophageal reflux disease without esophagitis; Z98.890 Other specified postprocedural states; Z79.51 Long term (current) use of inhaled steroids; Z79.899 Other long term (current) drug therapy; D53.9 Nutritional anemia, unspecified; T14.8XXS Other injury of unspecified body region, sequela; W34.00XS Accidental discharge from unspecified firearms or gun, sequela; Z66 Do not resuscitate; Z85.46 Personal history of malignant neoplasm of prostate; Z85.528 Personal history of other malignant neoplasm of kidney
CPT/HCPCS: 36415; 70450-TC; 71045-TC; 76770-TC; 80048-TC; 80053-TC; 80076-TC; 81001; 82140-TC; 83605-TC; 83735-TC; 84100-TC; 84443-TC; 84484-TC; 85025-TC; 85730-TC; 87040-TC; 87081-TC; 97110-TC; 97116-TC; 97530-TC; G0378; G0480; J2405; J2543; J7030; J7050; J7060; Q9967

== ENCOUNTER 2023-09-05 22:10 | Inpatient (IN) | payer MEDICARE, OTHER ==
[~2023-09-05] VITALS: Ht 167.6 cm; Wt 58.5 kg
[~2023-09-05 22:10] MED LIST changes: +AMIN30LI2 PO
[2023-09-05] MEDS ORDERED: IV NS 0.9% 1,000 ML BAG IV ONE (23:00)
[2023-09-05 23:25] LABS: BASOPHILS # (AUTO) 0.1 K/uL (0.0-0.2); BASOPHILS % (AUTO) 0.6 % (0.0-2.0); EOSINOPHILS # (AUTO) 0.2 K/uL (0.0-0.7); EOSINOPHILS % (AUTO) 2.1 % (0.0-6.0); HEMATOCRIT 41 % (39-51); HEMOGLOBIN 13.6 g/dL (13.5-17.5); LYMPHOCYTES # (AUTO) 1.7 K/uL (0.8-4.8); LYMPHOCYTES % (AUTO) 19.8 % (20.0-44.0); MEAN CORPUSCULAR HEMOGLOBIN 33 PG (26.0-33.0); MEAN CORPUSCULAR HGB CONC 33 g/dl (31.0-36.0); MEAN CORPUSCULAR VOLUME 100 fL (80-96); MONOCYTES # (AUTO) 0.8 K/uL (0.1-1.30); MONOCYTES % (AUTO) 8.8 % (2.0-12.0); NEUTROPHILS # (AUTO) 5.9 K/uL (1.8-8.9); NEUTROPHILS % (AUTO) 68.7 % (43.0-81.0); PLATELET COUNT (AUTO) 208 K/uL (150-450); RED BLOOD CELL COUNT(AUTO) 4.12 MIL/uL (4.5-6.0); RED CELL DISTRIBUTION WIDTH 14.7 % (11.5-15.0); WHITE BLOOD COUNT (AUTO) 8.6 K/uL (4.3-11.0)
[2023-09-05 23:41] LABS: ALANINE AMINOTRANSFERASE 29 U/L (12-78); ALBUMIN 3.5 g/dL (3.4-5.0); ALKALINE PHOSPHATASE 113 U/L (46-116); ASPARTATE AMINOTRANSFERASE 31 U/L (15-37); BILIRUBIN,DIRECT 0.1 mg/dL (0.0-0.2); BILIRUBIN,TOTAL 0.4 mg/dL (0.2-1.0); CALCIUM, SERUM 9.2 mg/dL (8.5-10.1); CARBON DIOXIDE 29 mmol/L (21-32); CHLORIDE 108 mmol/L (98-107); GLUCOSE 98 mg/dL (74-106); POTASSIUM 4.4 mmol/L (3.5-5.1); SODIUM SERUM 141 mmol/L (136-145); TOTAL PROTEIN, SERUM 7.5 g/dL (6.4-8.2); UREA NITROGEN, BLOOD 29 mg/dL (7-18)
[2023-09-06] MEDS ORDERED: CT SWABBABLE VALVE TRANS SET 1 EA INFUS.SET MC ONE (01:55)
[2023-09-06] MEDS ORDERED: IOHEXOL-300 100 ML VIAL IV ONE (01:55)
[2023-09-06] MEDS ORDERED: IV NS 0.9% 250 ML IV ONE (01:55)
[2023-09-06 02:21] LABS: APPEARANCE,URINE TURBID (CLEAR); BACTERIA,URINE Rare /HPF (None Seen); COLOR,URINE RED (YELLOW); RBC,URINE TOO NUMEROUS TO COUN /HPF (0-2); SQUAMOUS EPITHELIAL CELL,UR Rare /HPF (None Seen); WBC,URINE 0-2 /HPF (0-3)
[2023-09-06 02:28] LABS: AMPHETAMINE, URINE NEGATIVE (NEGATIVE); BARBITURATE, URINE NEGATIVE (NEGATIVE); BENZODIAZEPINE, URINE NEGATIVE (NEGATIVE); CANNABINOID, URINE NEGATIVE (NEGATIVE); COCCAINE, URINE NEGATIVE (NEGATIVE); OPIATE, URINE NEGATIVE (NEGATIVE); PHENCYCLIDINE SCREEN,URINE NEGATIVE (NEGATIVE)
[2023-09-06 02:36] LABS: ACETAMINOPHEN <10 ug/ml (10-30); ALCOHOL, BLOOD < 3 mg/dL (0-10); SALICYLATE 1.3 mg/dL (2.8-20.0)
[2023-09-06] MEDS ORDERED: MAG HYDROX/AL HYDROX/SIMETH 30 ML UDC PO PRN (03:00)
[2023-09-06] MEDS ORDERED: MAGNESIUM HYDROXIDE 30 ML UDC PO PRN (03:00)
[2023-09-06] MEDS ORDERED: ACETAMINOPHEN 325 MG TABLET PO PRN (03:00)
[2023-09-06] MEDS ORDERED: ONDANSETRON HCL/PF 4 MG/2 ML VIAL IVP PRN (03:00)
[2023-09-06] MEDS ORDERED: ZOLPIDEM TARTRATE 5 MG TABLET PO PRN (03:00)
[2023-09-06] MEDS ORDERED: Z GUARD REMEDY 4 OZ OINT TP PRN (03:00)
[2023-09-06 05:59] LABS: BASOPHILS # (AUTO) 0.1 K/uL (0.0-0.2); EOSINOPHILS # (AUTO) 0.2 K/uL (0.0-0.7); EOSINOPHILS % (AUTO) 2.6 % (0.0-6.0); HEMATOCRIT 36 % (39-51); HEMOGLOBIN 11.9 g/dL (13.5-17.5); LYMPHOCYTES # (AUTO) 2.1 K/uL (0.8-4.8); LYMPHOCYTES % (AUTO) 26.5 % (20.0-44.0); MEAN CORPUSCULAR HEMOGLOBIN 33 PG (26.0-33.0); MEAN CORPUSCULAR HGB CONC 33 g/dl (31.0-36.0); MEAN CORPUSCULAR VOLUME 100 fL (80-96); MONOCYTES # (AUTO) 0.8 K/uL (0.1-1.30); MONOCYTES % (AUTO) 10.3 % (2.0-12.0); NEUTROPHILS # (AUTO) 4.7 K/uL (1.8-8.9); NEUTROPHILS % (AUTO) 59.6 % (43.0-81.0); PLATELET COUNT (AUTO) 149 K/uL (150-450); RED BLOOD CELL COUNT(AUTO) 3.56 MIL/uL (4.5-6.0); RED CELL DISTRIBUTION WIDTH 14.5 % (11.5-15.0); WHITE BLOOD COUNT (AUTO) 7.9 K/uL (4.3-11.0)
[2023-09-06] MEDS ORDERED: ALBUTEROL FS 2.5 MG/3 ML VIAL.NEB NEB PRN (07:00)
[2023-09-06] MEDS: IV NS 0.9% 1,000 ML IV PRN (07:52)
[2023-09-06] MEDS: PIPERACILLIN /TAZOBACTAM 3.375 G in IV D5W 50 ML IV SCH ×4 (07:52→23:29)
[2023-09-06] MEDS: MEMANTINE HCL 5 MG TABLET PO SCH ×2 (08:45→21:04)
[2023-09-06] MEDS: PROSOURCE / PROSTAT (PYXIS) 30 ML UDC PO SCH (08:46)
[2023-09-06] MEDS ORDERED: Medication Not On Formulary EA (Cranberry Extract (Cranberry) 850 MG) PO SCH (09:00)
[2023-09-06 16:00] VITALS: BP 109/58; TEMP 98.4; O2SAT 97
[2023-09-06] MEDS ORDERED: DOCUSATE SODIUM 100 MG CAPSULE PO SCH (18:00)
[2023-09-07] MEDS: IV NS 0.9% 1,000 ML IV PRN (01:25)
[2023-09-07 05:00] VITALS: BP 142/72; TEMP 98.4; O2SAT 100
[2023-09-07] MEDS: PIPERACILLIN /TAZOBACTAM 3.375 G in IV D5W 50 ML IV SCH ×2 (05:24→12:33)
[2023-09-07 07:16] LABS: BASOPHILS % (AUTO) 0.3 % (0.0-2.0); EOSINOPHILS # (AUTO) 0.2 K/uL (0.0-0.7); EOSINOPHILS % (AUTO) 2.7 % (0.0-6.0); HEMATOCRIT 35 % (39-51); HEMOGLOBIN 11.5 g/dL (13.5-17.5); LYMPHOCYTES # (AUTO) 1.8 K/uL (0.8-4.8); LYMPHOCYTES % (AUTO) 23.7 % (20.0-44.0); MEAN CORPUSCULAR HEMOGLOBIN 33 PG (26.0-33.0); MEAN CORPUSCULAR HGB CONC 33 g/dl (31.0-36.0); MEAN CORPUSCULAR VOLUME 99 fL (80-96); MONOCYTES # (AUTO) 0.8 K/uL (0.1-1.30); MONOCYTES % (AUTO) 10.8 % (2.0-12.0); NEUTROPHILS # (AUTO) 4.6 K/uL (1.8-8.9); NEUTROPHILS % (AUTO) 62.5 % (43.0-81.0); PLATELET COUNT (AUTO) 182 K/uL (150-450); RED BLOOD CELL COUNT(AUTO) 3.51 MIL/uL (4.5-6.0); RED CELL DISTRIBUTION WIDTH 14.4 % (11.5-15.0); WHITE BLOOD COUNT (AUTO) 7.4 K/uL (4.3-11.0)
[2023-09-07 07:47] LABS: CALCIUM, SERUM 8.2 mg/dL (8.5-10.1); CREATININE 0.9 mg/dL (0.6-1.3); MAGNESIUM 1.9 mg/dL (1.8-2.4); PHOSPHORUS 2.6 mg/dL (2.5-4.9); POTASSIUM 3.8 mmol/L (3.5-5.1)
[2023-09-07] MEDS: PROSOURCE / PROSTAT (PYXIS) 30 ML UDC PO SCH (08:56)
[2023-09-07] MEDS: MEMANTINE HCL 5 MG TABLET PO SCH (08:56)
[2023-09-07] MEDS ORDERED: DUTA0.5C PO (10:11)
[2023-09-07] MEDS ORDERED: CEPH250C PO (10:11)
[2023-09-07 13:30] VITALS: BP 136/69; TEMP 97.9; O2SAT 98
== END 2023-09-07 13:45 | DRG 640 ==
LOC: ER 22:12 → MEDSG1 09-06 04:40
PROVIDERS: ADMIT Nurse Practitioner Acute Care; ATTEND Nurse Practitioner Acute Care
DX: E86.0 Dehydration (principal); G93.41 Metabolic encephalopathy; I50.33 Acute on chronic diastolic (congestive) heart failure; F03.93 Unspecified dementia, unspecified severity, with mood disturbance; E78.5 Hyperlipidemia, unspecified; N30.91 Cystitis, unspecified with hematuria; K21.9 Gastro-esophageal reflux disease without esophagitis; I11.0 Hypertensive heart disease with heart failure; F25.9 Schizoaffective disorder, unspecified; F32.A Depression, unspecified; N40.0 Benign prostatic hyperplasia without lower urinary tract symptoms; W34.00XS Accidental discharge from unspecified firearms or gun, sequela; Z98.890 Other specified postprocedural states; S31.139S Puncture wound of abdominal wall without foreign body, unspecified quadrant without penetration into peritoneal cavity, sequela; Z79.51 Long term (current) use of inhaled steroids; Z79.899 Other long term (current) drug therapy; D69.6 Thrombocytopenia, unspecified; D64.9 Anemia, unspecified; E87.8 Other disorders of electrolyte and fluid balance, not elsewhere classified; N20.0 Calculus of kidney; N19 Unspecified kidney failure; I72.8 Aneurysm of other specified arteries; N32.9 Bladder disorder, unspecified
CPT/HCPCS: 36415; 70450-TC; 71045-TC; 80048-TC; 80076-TC; 81001; 83735-TC; 84100-TC; 84484-TC; 85025-TC; 87081-TC; A4223; G0378; G0480; J2543; J7030; J7050; J7060; Q9967

== ENCOUNTER 2024-06-10 19:53 | Emergency (ER) | payer MEDICARE, OTHER ==
[~2024-06-10] VITALS: Ht 175.3 cm; Wt 56.7 kg
[~2024-06-10 19:53] MED LIST changes: +CEPH250C PO; +DUTA0.5C PO
[2024-06-10 20:04] VITALS: TEMP 98.7
[2024-06-10 23:46] VITALS: BP 113/77; O2SAT 100
== END 2024-06-11 00:05 ==
LOC: ER 19:55
DX: S05.11XA Contusion of eyeball and orbital tissues, right eye, initial encounter (principal); F03.90 Unspecified dementia, unspecified severity, without behavioral disturbance, psychotic disturbance, mood disturbance, and anxiety; E78.5 Hyperlipidemia, unspecified; I50.9 Heart failure, unspecified; F32.A Depression, unspecified; Z87.448 Personal history of other diseases of urinary system; Y04.0XXA Assault by unarmed brawl or fight, initial encounter; Y93.89 Activity, other specified; Y92.89 Other specified places as the place of occurrence of the external cause; Y99.8 Other external cause status
CPT/HCPCS: 70450-TC; 70486-TC